=== PATIENT | female | born 1935 | race Caucasian/White ===

== ENCOUNTER 2016-08-29 17:01 | Inpatient (IN) | payer MEDICARE, OTHER ==
[~2016-08-29] VITALS: Ht 161.3 cm; Wt 77.2 kg
[2016-08-29 17:13] VITALS: BP 202/87; PULSE 69; RESP 14; O2SAT 97
[2016-08-29 17:30] VITALS: BP 207/70; PULSE 62; RESP 16; O2SAT 96
[2016-08-29 17:38] LABS: BASOPHILS % (AUTO) 0.7 % (0-3); EOSINOPHILS % (AUTO) 2.8 % (0-5); MONOCYTES % (AUTO) 6.1 % (4-12); Mean Corpuscular Hemoglobin 27.8 pg (27.0-35.0); Mean Corpuscular Volume 85.9 fL (81-100); NEUTROPHILS % (AUTO) 72.2 % (40-74); Platelet Count 336 bil/L (150-400)
[2016-08-29] MEDS ORDERED: Nitroglycerin 2% 1 Gm Ointment TOPICAL ONE (17:50)
--- NOTE | 2016-08-29 17:51 | DRSVH ---
PROCEDURE: X-RAY CHEST ONE VIEW, PORTABLE ([id number]) INDICATIONS: 80 year-old female with chest pain and syncope. TECHNIQUE: One view of the chest was acquired. COMPARISON: None. FINDINGS: Surgical changes and devices: None. Lungs and pleura: No pleural effusions or pneumothorax. Lungs are clear. Mediastinum: Mediastinal contours appear normal. Heart size is normal. Bones and chest wall: No suspicious bony lesions. Overlying soft tissues appear unremarkable. IMPRESSION: No acute cardiopulmonary disease. Dictated by: Vj Putnam M.D. on 08/29/2016 at 17:49 Approved by: Vj Putnam M.D. on 08/29/2016 at 17:50
[2016-08-29 18:00] VITALS: BP 169/76; PULSE 59; RESP 16; O2SAT 95
--- NOTE | 2016-08-29 18:12 | ED.REPORT ---
HPI-Syncope Date of Service August 29, 2016 ED Provider: Gus Balderas MD The patient is a 80 year old female not on anticoagulants with a history of hypertension and hyperlipidemia who presents to the ED via EMS accompanied by her after a syncopal episode just prior to arrival. The patient's lower back has been hurting for the past ten days and earlier this evening she was bent over the counter in an attempt to relieve it. When she straightened up, she "just kept going" per her , falling backwards and hitting her head on the refrigerator. The patient was unconscious for approximately 20 seconds. She was confused and disoriented when she woke up, but returned to her normal mental status after a couple of minutes. She does not remember straightening up or falling over. Her denies seizure-like activity. EMS found the patient with a BP of 228/102 and otherwise normal vital signs. She presents complaining of substernal pleuritic chest pain and shortness of breath onset upon waking up after the fall. The patient denies nausea, diaphoresis, palpitations, melena, hematochezia, hematemesis, headache, dysuria, or other symptoms. She has never had similar symptoms in the past. Nursing Notes Stated Complaint: GLF Chief Complaint: General Complaint Nursing Notes Reviewed: Yes Allergies: Coded Allergies: codeine (Verified Allergy, Unknown, ITCHY, 08/29/16) Scheduled PRN Aspirin (Aspirin) 325 Mg Tablet 325 MG PO Q4H PRN PRN For Pain Ibuprofen (Ibuprofen) 600 Mg Tablet 600 MG PO Q4H PRN PRN For Pain General Time Seen by Provider: 18:11 Chief Complaint Other (Syncopal Episode) Hx Obtained From: Patient, Spouse Arrived By: Ambulance Onset Occurred: Just prior to arrival Symptom Duration: Since onset Location: : Back: Chest Quality: Painful Severity: Current: Moderate Severity: Maximum: Moderate Pertinent Negative: Relieved by nothing Related History: Reports: Hypertension Immunizations: Unknown Recent Healthcare: No recent doctor visit Similar Sx Previous: No Past Medical History Past Medical History Notes: Patient is DNR/DNI. Past Medical History Reports: Hyperlipidemia, Hypertension Past Surgical History Right shoulder Reports: Hysterectomy Smoking History Unknown if Ever Smoker Social History Other Social History: Good social support, , Local resident Ambulatory Status Independent Review of Systems Constitutional: Denies: Fever Respiratory: Reports: Pleuritic pain, Shortness of breath, Denies: Non-productive cough Cardiovascular: Reports: Chest pain (Substernal), Denies: Palpitations GI: Denies: Hematemesis, Hematochezia, Melena, Nausea, Vomiting Musculoskeletal: Reports: Back pain Skin: Denies Diaphoresis Neurologic: Reports: Confusion (Resolved), Syncope, Denies: Headache, Seizure Complete sys rev & neg: except as marked. Additional Review of Systems Female: Denies: Dysuria Physical Exam Initial Vital Signs Vital Signs (First) Date Time Temp Pulse Resp B/P Pulse Ox O2 Delivery O2 Flow Rate FiO2 08/29/16 17:13 36.6 69 14 202/87 97 Room Air Initial VS: Reviewed Head / Eyes: Atraumatic, Normocephalic Skin: Warm, Dry, No cyanosis Psychiatric: Mood/affect normal, Behavior normal, Normal thought content General/Constitutional: Awake, Alert Respiratory / Chest: Breath sounds NL, Breath sounds = bilat, No respiratory distress Tender anterior chest wall Cardiovascular: Heart rate NL, Regular rhythm Heart Sounds / Murmur: Positive: Systolic murmur present.. (III/, upper left sternal border) Neurologic: Oriented X3, Speech NL Neck: Atraumatic, No midline vertebral tend Abdomen: Soft, Non-tender Back: Atraumatic, No midline vertebral tend Interpretation & Diagnostics Lab Results Interpretation Result Diagram: 08/29/16 1724 08/29/16 1724 Test 08/29/16 17:15 08/29/16 17:24 Hold Purple Top Tube Received (Received) Hold Blue Top Tube Received (Received) Hold [place] Top Tube Received (Received) White Blood Count 11.3th/mm3 (3.8-10.1) Red Blood Count 4.75mil/mm3 (3.90-5.20) Hemoglobin 13.2g/dL (12.0-15.6) Hematocrit 40.8% (35.0-46.0) Mean Corpuscular Volume 85.9fL (81-100) Mean Corpuscular Hemoglobin 27.8pg (27.0-35.0) Mean Corpuscular Hemoglobin Concent 32.4% (32.0-37.0) Red Cell Distribution Width 14.1% (12.3-15.4) Platelet Count 336bil/L (150-400) Neutrophils (%) (Auto) 72.2% (40-74) Lymphocytes (%) (Auto) 17.1% (14-46) Monocytes (%) (Auto) 6.1% (4-12) Eosinophils (%) (Auto) 2.8% (0-5) Basophils (%) (Auto) 0.7% (0-3) Sodium Level 140mEq/L (134-144) Potassium Level 3.8mEq/L (3.5-5.2) Chloride Level 100mEq/L (97-108) Carbon Dioxide Level 20mmol/L (18-29) Blood Urea Nitrogen 22mg/dL (8-27) Creatinine 1.08mg/dL (0.57-1.00) Estimat Glomerular Filtration Rate 70mL/min (>59) Glucose Level 132mg/dL (60-99) Calcium Level 10.1mg/dL (8.5-10.1) Magnesium Level 2.0mg/dL (1.6-2.6) Total Bilirubin 0.4mg/dL (0.0-1.2) Aspartate Amino Transf (AST/SGOT) 25U/L (0-50) Alanine Aminotransferase (ALT/SGPT) 15U/L (0-32) Alkaline Phosphatase 158U/L (25-165) Troponin T < 0.010ug/L (0.0-0.011) Total Protein 7.8g/dL (6.4-8.4) Albumin 3.9g/dL (3.4-5.0) ECG Interpretation ECG Interpretation: Sinus rhythm rate [address] segment changes LVH Time: 17:29 Interpreted by: ED physician X-Ray Chest Interpretation Chest Xray Interpretation: IMPRESSION: No acute cardiopulmonary disease. Dictated by: Vj Putnam M.D. on 08/29/2016 at 17:49 View: Portable, 1 view Interpretation / Wet Read by: Interpret - Radiologist X-Ray Interpretation Xray Interpretation: IMPRESSION: No acute bony injuries of the pelvic ring. Dictated by: Vj Putnam M.D. on 08/29/2016 at 19:09 Study Performed: 1 View X-Ray Ordered: Pelvis CT Head Interpretation IMPRESSION: 1. No acute intracranial hemorrhage after fall. 2. Findings suspicious for acute ischemic insults involving the right occipital lobe, as well as the anterior limb of the left internal capsule. Consider noncontrast brain MRI for further evaluation. 3. Background subcortical white matter chronic small vessel ischemic change. Dictated by: Vj Putnam M.D. on 08/29/2016 at 19:19 Study: Head CT no contrast Interpretation / Wet Read by: Interpret - Radiologist CT Chest Interpretation IMPRESSION: 1. Mildly displaced sternal body fracture, without retrosternal hematoma, pulmonary contusion, or pneumothorax. 2. Nonacute T5 and T6 vertebral body anterior wedge compression fractures, as well as lateral left eighth rib fracture. 3. Moderate retrocardiac hiatal hernia. 4. Several incidental left hepatic lobe simple cysts. Dictated by: Vj Putnam M.D. on 08/29/2016 at 19:25 Study type: Chest CT no contrast Interpretation / Wet Read by: Interpret - Radiologist Re-Eval/Medical Decision Med Decision/Clinical Course 80-year-old female with a history of hypertension and LVH who experienced a syncopal episode today. This was in the context of some severe back pain which has been ongoing for several days and was not traumatic in onset. During her syncopal episode she suffered a chest wall injury with sternal fracture. She is presently stable and in normal sinus rhythm, having some pain from her chest wall injury, she will be admitted to the hospitalist service for observation and pain control. On-call surgeon was advised of the patient's admission, does not appear to be any significant traumatic injury and sternal fracture is not expected to require intervention. Source of Hx: Old records Re-Evaluation/Progress : Time of Eval: 20:17 Patient Status: Condition improved Re-Evaluation/Progress Note: Discussed with patient CT, x-ray, and lab results, diagnosis, and plan for admit. Patient agrees with plan for care and all questions were addressed. Code status discussed with the patient in the presence of her family. Patient is DNR/DNI. Consultation #1: Referral / Consult Name: Neela Brown MD Consulted With: Surgeon Call Returned at: 20:24 Education And Training Manager: Agrees with eval, Agrees with plan Note: Discussed patient's case. Consultation #2: Referral / Consult Name: Abhilash Wolf MD Consulted With: Hospitalist Call Returned at: 20:50 Education And Training Manager: Agrees with eval, Agrees with plan, Accepts admit Counseled Regarding: Diagnosis, Lab results, Need for admission Discharge & Departure Impression: Primary Impression: Sternal fracture Encounter type: initial encounter Sternal location: body of sternum Fracture type: closed Qualified Code: S22.22XA - Fracture of body of sternum , initial encounter for closed fracture Additional Impression: Syncope Syncope type: unspecified Qualified Code: R55 - Syncope and collapse Disposition: ADMITTED TO HOSPITAL Discharge Condition All VS Reviewed: Yes Condition: Improved Referrals: Chitra Medina (PCP) Scribe Attestation Portions of this note were transcribed by Roseanna Chen. I, Dr. Balderas, personally performed the history, physical exam, and medical decision-making; I reviewed and confirmed the accuracy of the information in the transcribed note. Signed by: Isabell Kilpatrick, 08/29/2016, 21:00 copies to: Chitra Medina Donald L MD August 29, 2016 18:12 ROSEANNA CHEN August 29, 2016 18:29
[2016-08-29 18:56] LABS: TROPONIN T < 0.010 ug/L (0.0-0.011)
--- NOTE | 2016-08-29 19:11 | DRSVH ---
PROCEDURE: X-RAY PELVIS, ONE OR TWO VIEWS ([id number]) INDICATIONS: 80 year-old female with buttocks pain after ground level fall. TECHNIQUE: One view(s) of the pelvis acquired. COMPARISON: None. FINDINGS: Bones: No fractures or dislocations. No suspicious bony lesions. Soft tissues: Visualized bowel gas pattern is normal. No suspicious soft tissue calcifications. IMPRESSION: No acute bony injuries of the pelvic ring. Dictated by: Vj Putnam M.D. on 08/29/2016 at 19:09 Approved by: Vj Putnam M.D. on 08/29/2016 at 19:09
--- NOTE | 2016-08-29 19:26 | DRSVH ---
PROCEDURE: CT BRAIN WITHOUT CONTRAST ([id number]) INDICATIONS: 80-year-old female with headaches after fall. TECHNIQUE: Noncontrast 4.5 mm thick angled axial sections acquired from the foramen magnum to the vertex, with c oronal reformats. COMPARISON: None. FINDINGS: Image quality: Excellent. CSF spaces: Basal cisterns are patent. No extra-axial fluid collections. Ventricles are normal in size and shape. Brain: No midline shift. No intracranial masses or hemorrhage. On axial image 13, there is small a symmetric hypodensity involving the anterior limb of the left internal capsule. There is apparent los s of bain-white matter differentiation involving the right occipital lobe. There is patchy subcortica l white matter chronic small vessel ischemic change. There is intracranial internal carotid artery at herosclerosis. Skull and face: Calvarium and visualized facial bones are intact, without suspicious lesions. Sinuses: Visualized sinuses and mastoids are clear. IMPRESSION: 1. No acute intracranial hemorrhage after fall. 2. Findings suspicious for acute ischemic insults involving the right occipital lobe, as well as the anterior limb of the left internal capsule. Consider noncontrast brain MRI for further evaluation. 3. Background subcortical white matter chronic small vessel ischemic change. Dictated by: Vj Putnam M.D. on 08/29/2016 at 19:19 Approved by: Vj Putnam M.D. on 08/29/2016 at 19:25
--- NOTE | 2016-08-29 19:33 | DRSVH ---
PROCEDURE: CT CHEST WITHOUT CONTRAST ([id number]) INDICATIONS: 80 year-old female with chest pain after fall. TECHNIQUE: Noncontrast 5 mm thick sections acquired from the pulmonary apices to the posterior costophrenic angl es. 7 mm thick coronal and sagittal MIP reformats were then acquired. For radiation dose reduction, the following was used: automated exposure control, adjustment of mA and/or kV according to patient size. COMPARISON: [facility], CR, XR CHEST 1VW (PORTABLE), 08/29/2016, 17:33. FINDINGS: Image quality: Excellent. Lungs and pleura: No acute air space opacities. No pleural effusions or pneumothorax. Central and peripheral airways are patent and normal in caliber. Mediastinum: Heart size is normal, with coronary artery atherosclerosis. No pericardial effusion. No mediastinal adenopathy by size criteria. Thoracic aorta and central pulmonary arteries are normal in size. Esophagus is normal in caliber. There is moderate hiatal hernia. Bones and chest wall: No suspicious bony lesions. Nonacute T5 and T6 vertebral body anterior wedge c ompression fractures are present, with 40-50% height loss. Nonacute nonunited lateral left eighth rib fracture is present. Sagittal reformatted images also demonstrate mildly displaced sternal body frac ture, without retrosternal hematoma. No axillary or supraclavicular adenopathy by size criteria. Thy roid gland is normal in size. Abdomen: Several left hepatic lobe simple cysts are present, measuring up to 3.5 cm. 1.9 cm superior right renal cortical simple cyst is also present. IMPRESSION: 1. Mildly displaced sternal body fracture, without retrosternal hematoma, pulmonary contusion, or pne umothorax. 2. Nonacute T5 and T6 vertebral body anterior wedge compression fractures, as well as lateral left ei ghth rib fracture. 3. Moderate retrocardiac hiatal hernia. 4. Several incidental left hepatic lobe simple cysts. Dictated by: Vj Putnam M.D. on 08/29/2016 at 19:25 Approved by: Vj Putnam M.D. on 08/29/2016 at 19:32
[2016-08-29] MEDS ORDERED: oxyCODONE-Acetamin 5-325 mg Tablet PO ONE (20:25)
[2016-08-29] MEDS ORDERED: ASPI325T32 PO (20:29)
[2016-08-29] MEDS ORDERED: IBUP-1827 PO (20:29)
[2016-08-29] MEDS ORDERED: Ondansetron 2 mg/mL 2 mL Inj IVPUSH PRN (20:55)
[2016-08-29] MEDS ORDERED: Alum-Mag Hydrox-Simeth 30 mL Suspension PO PRN ×2 (20:55→21:00)
[2016-08-29] MEDS ORDERED: Polyethylene Glycol (PEG) 17 Gm Powder PO PRN (21:00)
[2016-08-29] MEDS ORDERED: Labetalol 5 mg/mL 4 mL Inj IVPUSH PRN (21:00)
[2016-08-29 22:07] VITALS: BP 165/59; PULSE 67; RESP 18; O2SAT 95
--- NOTE | 2016-08-29 22:39 | PCM.HPMED ---
Subjective Date of Service August 29, 2016 Primary Provider: Admitting Physician: Primary Care Physician: Chitra Medina Attending Physician: Admit Status: From the Emergency Department, Remote Telemetry Chief Complaint: Syncope History of Present Illness: Patient is a 80 year old female not on anticoagulants with a history of hypertension and hyperlipidemia who presents to the ED via EMS accompanied by her after a syncopal episode just prior to arrival. Patient had injured her low back due to heavy lifting 10 days ago and has been going to the chiropractor for this with not much improvement. Patient states she has been mostly lying in bed due to its severity. This evening when she got up from her bed she felt quite lightheaded. Patient continued to feel lightheaded even after taking some moments there, went into the kitchen and had to brace herself against the counter. Patient states she does not remember falling. Per her 's the patient was unconscious for approximately 20 seconds. She was confused and disoriented when she woke up, but returned to her normal mental status after a couple of minutes. Patient denies any tongue biting, incontinence, headaches, nausea, vision changes. Her denies seizure- like activity. EMS found the patient with a BP of 228/102 and otherwise normal vital signs. She presents complaining of substernal pleuritic chest pain and shortness of breath onset upon waking up after the fall. The patient denies nausea, diaphoresis, palpitations, melena, hematochezia, hematemesis, dysuria, or other symptoms. She has never had similar symptoms in the past. Patient characterizes her sternal pain as sharp and 9/10 on the pain scale, low back as deep and achy with pain scale of 8/10 on the pain scale. In ED vitals T 36.6, P 69, are 14, BP 202/87, oxygen saturation 97% on RA. Labs significant for WBC 11.3, creatinine 1.08, glucose 132, otherwise unremarkable. Troponin negative. ECG was no acute ischemic changes. CXR showed no acute cardiopulmonary disease, x-ray of pelvis showed no acute bony injuries of the pelvic ring. CT of head showed no signs of acute intracranial hemorrhage, findings suspicious for acute ischemic insults involving the right occipital lobe as well as the anterior limb on the left internal capsule. CT of her chest showed a mildly displaced sternal body fracture, nonacute T5 and T6 vertebral body compression fractures, and lateral left eighth rib fracture. Dr. Rangel Brown of surgery was consulted, will see the patient in a.m. Patient admitted for further treatment and management including stroke workup. Review of Systems: Constitutional: Denies: Fever Respiratory: Reports: Pleuritic pain, Shortness of breath, Denies: Non-productive cough Cardiovascular: Reports: Chest pain (Substernal), Denies: Palpitations GI: Denies: Hematemesis, Hematochezia, Melena, Nausea, Vomiting Musculoskeletal: Reports: Back pain Skin: Denies Diaphoresis Female: Denies: Dysuria Neurologic: Reports: Confusion (Resolved), Syncope, Denies: Headache, Seizure Complete sys rev & neg: except as marked. A comprehensive review of systems has been conducted with the patient and found to be negative except what is mentioned above or in the HPI. Allergies Coded Allergies: codeine (Verified Allergy, Unknown, ITCHY, 08/29/16) PMH Hyperlipidemia Hypertension Surgical History Right shoulder surgery Hysterectomy Family History Father of heart condition. Social History Hx Alcohol Use: No Hx Substance Use: No Hx Tobacco Use: No Smoking Status: Never Smoker Living Arrangement: with Family (, local resident with good support) Exam Vital Signs Vital Sign - Last Date Time Temp Pulse Resp B/P Pulse Ox O2 Delivery O2 Flow Rate FiO2 08/29/16 18:00 59 16 169/76 95 Room Air 08/29/16 17:13 36.6 Exam General: No acute distress, well-developed, well-nourished, cooperative HEENT: Normocephalic, atraumatic. External ears without defect. Pupils constricted bilaterally (s/p 6mg of morphine). Anicteric sclerae, moist conjunctivae. moist mucosa membranes. Neck: Supple with full range of motion. No JVD. No bruits. No lymphadenopathy. Cardiovascular: Regular rate and rhythm with III/ murmurs appreciated at LUSB radiating to neck, rubs, or gallops appreciated Pulmonary: CTAB no crackles, wheezes, or rhonchi. Abdomen: Bowel tones present. Soft, nontender, nondistended. No hepatosplenomegaly or masses appreciated. Extremities: No clubbing, cyanosis, edema, or lymphadenopathy appreciated. MSK: Limited ROM on right shoulder. Tenderness to motion and palpation at anterior chest wall. No midline tenderness along neck and back. Skin: Warm, dry and intact Neurological: Awak, alert and oriented x3. Cranial nerves II-XII grossly intact. Normal muscle strength, tone, and bulk. Sensory function within normal limits. No pronator drift. Normal speech. Psychiatric: Normal mood and affect. Alert and oriented to person, place, and time. Lab and Diagnostics Result Diagram: 08/29/16 1724 08/29/16 1724 X-Rays, CTs and MRIs Chest Xray Interpretation: IMPRESSION: No acute cardiopulmonary disease. Dictated by: Vj Putnam M.D. on 08/29/2016 at 17:49 View: Portable, 1 view Interpretation / Wet Read by: Interpret - Radiologist Xray Interpretation: IMPRESSION: No acute bony injuries of the pelvic ring. Dictated by: Vj Putnam M.D. on 08/29/2016 at 19:09 Study Performed: 1 View X-Ray Ordered: Pelvis CT head IMPRESSION: 1. No acute intracranial hemorrhage after fall. 2. Findings suspicious for acute ischemic insults involving the right occipital lobe, as well as the anterior limb of the left internal capsule. Consider noncontrast brain MRI for further evaluation. 3. Background subcortical white matter chronic small vessel ischemic change. Dictated by: Vj Putnam M.D. on 08/29/2016 at 19:19 Study: Head CT no contrast Interpretation / Wet Read by: Interpret - Radiologist CT Chest Interpretation IMPRESSION: 1. Mildly displaced sternal body fracture, without retrosternal hematoma, pulmonary contusion, or pneumothorax. 2. Nonacute T5 and T6 vertebral body anterior wedge compression fractures, as well as lateral left eighth rib fracture. 3. Moderate retrocardiac hiatal hernia. 4. Several incidental left hepatic lobe simple cysts. Dictated by: Vj Putnam M.D. on 08/29/2016 at 19:25 Study type: Chest CT no contrast Interpretation / Wet Read by: Interpret - Radiologist 12-lead ECG ECG Interpretation: Sinus rhythm rate [address] segment changes LVH Time: 17:29 Interpreted by: ED physician Assessment & Plan Patient is a 80 year old female with a history of hypertension and hyperlipidemia who presents to the ED via EMS accompanied by her after a syncopal episode. Patient had a GLF and hit her head with LOC for approximately 20 seconds. Patient was found to have a sternal fracture and CT head with findings suspicious for ischemic insults, patient admitted for surgery consult and stroke workup. Sternal fracture secondary to GLF, present on admission. Acute. - Confirmed on CT chest - Appreciate surgery's time and expertise, patient to be seen in a.m. Syncope, present on admission. Acute. - No seizure-like activities witnessed, highly suspicious for possible stroke based on CT head findings, and elevated blood pressures Possible stroke, present on admission. Acute. - CT showed "no acute intracranial hemorrhage, findings suspicious for acute ischemic insults involving the right occipital lobe, as well as the anterior limb of the left internal capsule." - NPO until swallow study - Swallow study pending - Echocardiogram in a.m. - Consider noncontrast brain MRI for further evaluation - PT, OT ordered Chronic conditions: Hypertension - patient states she has not taken any medication for this in several years due to side effects Hyperlipidemia - patient states she has not taken any medication for this in several years due to side effects Acetaminophen-fever/headache/mild/moderate pain Antiemetics, as needed Bowel regimen, as needed. Patient status: Patient was admitted under observation status with expected length of stay lesser than two midnights. Pain Evaluation: Adequate Pain Control GI Prophylaxis: Not indicated VTE Prophylaxis: Sub-Q Heparin (Unfractionated) Resuscitation Status: DNR/DNI:Do Not Resuscitate/Intubate Attending Statement The patient was seen and examined together with Dr. Glez on 08/29 and I agree with the history, exam and plan as outlined in the note above. Ebenezer Glez DO August 29, 2016 21:15 Abhilash Wolf MD August 30, 2016 03:37
[2016-08-29 23:50] VITALS: BP 172/72; PULSE 61; RESP 20; O2SAT 93
[2016-08-29 23:54] VITALS: BP_SYST 154; BP_SYST 159; BP_DIAS 77; BP_DIAS 91; PULSE 66; PULSE 68
[2016-08-30] VITALS (10 sets, daily range): BP systolic 157–222; BP diastolic 78–110; PULSE 47–125; RESP 18; O2SAT 94–97
[2016-08-30] MEDS: Heparin 5,000 Unit/mL Inj SUBQ SCH ×3 (00:41→20:05)
--- NOTE | 2016-08-30 01:06 | NUR ---
admit: admit questions and med rec completed in the ER. pt arrived to [facility] [place] at apprx 2300. A&OX3. c/o back/buttock pain, and sternal pain 11/15. pt medicated with prn Percocet. Ice for chest, and back, and pillow for splinting. nurse swallow screen, pt passed, puree honey thick diet ordered. will continue to monitor pt.
[2016-08-30] MEDS: oxyCODONE-Acetamin 5-325 mg Tablet PO PRN ×2 (05:54)
[2016-08-30] MEDS: Ondansetron 2 mg/mL 2 mL Inj IVPUSH PRN ×2 (05:59→10:20)
--- NOTE | 2016-08-30 08:37 | DRSVH ---
PROCEDURE: US BILATERAL DUPLEX DOPPLER IMAGING OF THE CAROTIDS ([id number]) INDICATIONS: possible stroke TECHNIQUE: Color and pulse Doppler interrogation was performed of both carotid systems, with image documentation and velocity measurements. COMPARISON: [facility], US, CAROTID DUPLEX DOPPLER BILAT, 10/08/2013, 13:46. FINDINGS: All stenosis calculations are based on NASCET criteria. Right side: Brachial blood pressure: 157/61 mm Hg. Common Carotid Artery(Distal) PSV: 102.20 cm/s Internal Carotid Artery PSV- Proximal: 61.30 cm/s Mid-lon cm/s EDV - Proximal: 13.70 cm/s Mid-lon.70 cm/s External Carotid Artery(Proximal) PSV: 125.10 cm/s ICA/CCA PSV ratio: 0.9 Richardson scale imaging description: Minimal plaque. Percent internal carotid artery stenosis: Less than 50% stenosis. Vertebral artery: Flow direction is antegrade. Left side: Brachial blood pressure: Not obtained. Common Carotid Artery(Distal) PSV: 64.30 cm/s Internal Carotid Artery PSV - Proximal: 90.40 cm/s Mid-lon cm/s Distal: 92.90 cm/s EDV - Proximal: 15.90 cm/s Mid-lon.50 cm/s Distal: 22.30 cm/s External Carotid Artery(Proximal) PSV: 145.60 cm/s ICA/CCA PSV ratio: 2.1 Richardson scale imaging description: Minimal plaque. Percent internal carotid artery stenosis: 50-69% stenosis Vertebral artery: Flow direction is antegrade. IMPRESSION: 50-69% left internal carotid artery stenosis and less than 50% right internal carotid art lamine stenosis. Dictated by: Eduin Jara [facility] Interpreted: Tiffanie Chirinos MD on 08/30/2016 at 8:35 Transcribed by: JENSEN on 08/30/2016 at 8:37 Approved by: Tiffanie Chirinos MD, PhD on 08/30/2016 at 9:39
--- NOTE | 2016-08-30 09:45 | NUR ---
Hypertension B/P - 198/90, HR 62. Permissive HTN parameters reviewed with Dr Song. Marshall to give Labetalol when SBP greater than 220, DBP greater than 120. Will continue to monitor, frequent rounding in place. Addendum: 08/30/16 at 1430 by PADMA ANTON RN B/P prior to leaving for MRI = 215/109 HR 125 - MRI placed on hold for HR. 10 mg of IV Labetalol obtained. HR rechecked prior to administration HR in the 60s. Labetalol held. Will continue to monitor,
--- NOTE | 2016-08-30 10:30 | NUR ---
Vomiting Pt vomiting x 3, ice pack placed to back of neck, HOB elevated, 4 mg IV Zofran given. Pt reports nausea has decreased. Call light in reach, will continue to monitor.
--- NOTE | 2016-08-30 10:56 | NUR ---
Case Management: PAUL delivered and explained. Original placed in chart and copy left at bedside. Rea Oliva RN
[2016-08-30] MEDS: Polyethylene Glycol (PEG) 17 Gm Powder PO SCH ×2 (11:00→20:04)
--- NOTE | 2016-08-30 11:28 | NUR ---
Evaluation completed. Please go to "Notes" then click on "Assessments and Notes" (bottom left corner of screen). Then select appropriate discipline tab on top of screen.
--- NOTE | 2016-08-30 13:00 | NUR ---
Anxiety/pain Pt c/o anxiety related to upcoming MRI, sternal pain and nausea continue. notified, new order received. PO Ativan and Ultram given, will continue to monitor. Addendum: 08/30/16 at 1451 by PADMA ANTON RN Pt resting quietly, appears to be sleeping, reports sternal pain is decreasing. Echo in process, will continue to monitor.
--- NOTE | 2016-08-30 13:14 | PCM.PNMED ---
Subjective Date of Service August 30, 2016 Subjective pt had mild frontal ALBERT, 2/10, mildly nauseated, no vomiting BP noted to be 190s, denied blurry vision, photophobia, focal weakness on limbs no BM for 5days, Exam Vital Signs Vital Sign - Last Date Time Temp Pulse Resp B/P Pulse Ox O2 Delivery O2 Flow Rate FiO2 08/30/16 09:24 36.7 63 18 188/90 94 Nasal Cannula 2.00 Intake and Output 08/29/16 08/29/16 08/30/16 Cumulative From/Thru 15:00 23:00 07:00 08/29/16 23:50 - 08/30/16 06:14 Intake Total 100 ml 100 ml Output Total 0 ml 0 ml Balance 100 ml 100 ml Intake Oral 100 ml 100 ml Output Urine Total 0 ml 0 ml Exam NAD, comfortably laying down on the bed no JVD, MMM, no LAD RRR, nl s1, s2 no mrg CTAB, no w,c S,ND,NT,normoactive BS+ warm, no edema, pulses 2/2 CN2-12 grossly intact, AAOx3, motor strength 5/5 Lab and Diagnostics Result Diagram: 08/29/16 1724 08/29/16 1724 X-Rays, CTs and MRIs Chest Xray Interpretation: IMPRESSION: No acute cardiopulmonary disease. Dictated by: Vj Putnam M.D. on 08/29/2016 at 17:49 View: Portable, 1 view Interpretation / Wet Read by: Interpret - Radiologist Xray Interpretation: IMPRESSION: No acute bony injuries of the pelvic ring. Dictated by: Vj Putnam M.D. on 08/29/2016 at 19:09 Study Performed: 1 View X-Ray Ordered: Pelvis CT head IMPRESSION: 1. No acute intracranial hemorrhage after fall. 2. Findings suspicious for acute ischemic insults involving the right occipital lobe, as well as the anterior limb of the left internal capsule. Consider noncontrast brain MRI for further evaluation. 3. Background subcortical white matter chronic small vessel ischemic change. Dictated by: Vj Putnam M.D. on 08/29/2016 at 19:19 Study: Head CT no contrast Interpretation / Wet Read by: Interpret - Radiologist CT Chest Interpretation IMPRESSION: 1. Mildly displaced sternal body fracture, without retrosternal hematoma, pulmonary contusion, or pneumothorax. 2. Nonacute T5 and T6 vertebral body anterior wedge compression fractures, as well as lateral left eighth rib fracture. 3. Moderate retrocardiac hiatal hernia. 4. Several incidental left hepatic lobe simple cysts. Dictated by: Vj Putnam M.D. on 08/29/2016 at 19:25 Study type: Chest CT no contrast Interpretation / Wet Read by: Interpret - Radiologist 12-lead ECG ECG Interpretation: Sinus rhythm rate [address] segment changes LVH Time: 17:29 Interpreted by: ED physician Assessment & Plan Patient is a 80 year old female with a history of hypertension and hyperlipidemia who presents to the ED via EMS accompanied by her after a syncopal episode. Patient had a GLF and hit her head with LOC for approximately 20 seconds. Patient was found to have a sternal fracture and CT head with findings suspicious for ischemic insults, patient admitted for surgery consult and stroke workup. acute, active Possible stroke, present on admission. CT showed "no acute intracranial hemorrhage, findings suspicious for acute ischemic insults involving the right occipital lobe, as well as the anterior limb of the left internal capsule." - NPO until swallow study - Swallow study pending - Echocardiogram - awaits MR stroke protocol, - PT, OT ordered, will try tomorrow given limited mobility due to pain from multiple fx -[id number] today, 162mg daily tomorrow Sternal fracture secondary to GLF, present on admission. Acute. Confirmed on CT chest - Appreciate surgery's time and expertise, likely non-surgical management. Syncope, present on admission. ddx: cardiac, CVA, No seizure-like activities witnessed -frequent neurochecks q2h HTN, uncontrolled, allows permissive HTN for now, labetalol if SBP>220 or DBP> 120 ALBERT, nausea, POA, likely in the setting acute stroke, HTN or ileus -will control supportively for now, -zofran for n/v, tylenol for ALBERT ileus, no BM>5days, start aggressive bowel regimen Chronic conditions: Hyperlipidemia - patient states she has not taken any medication for this in several years due to side effects, will get a1c, lipid panel for risk stratification Patient status: likely 1-2more days, DNR/DNI diet: per s/s eval dvt ppx: HSQ q12h GI Prophylaxis: Not indicated VTE Prophylaxis: Sub-Q Heparin (Unfractionated) Resuscitation Status: DNR/DNI:Do Not Resuscitate/Intubate Time spent 65min Ai Hayes MD August 30, 2016 11:01
[2016-08-30] MEDS: LORazepam 1 mg Tablet PO PRN (13:30)
--- NOTE | 2016-08-30 15:01 | CONS ---
[address] [address] CONSULTATION REPORT PATIENT: CHAPO CASTILLO : 1935 MR#: [id number] ADMIT: 08/29/2016 JOB ID: [id number] DATE OF SERVICE: 08/30/2016 CHIEF COMPLAINT: This is a 80-year-old woman with a sternal fracture; this consultation is requested by Dr. Gus Balderas of the Emergency Department. HISTORY OF PRESENT ILLNESS: This is a 80-year-old woman who presented to the emergency department last night with a syncopal episode. She described a history of back pain for the previous 10 days, and she had been bent over the counter in an attempt to relieve it. Her described that she fell backward. She arrived to the hospital with hypertension and otherwise normal vital signs. She was complaining of substernal chest pain. Comprehensive imaging was performed, including chest and pelvis radiographs, chest CT, and brain CT. The chest CT showed a sternal fracture, old rib fractures, and old thoracic spinal fractures. There was no other sign of trauma. She was admitted overnight for observation and to work up the potential cause for her syncopal episode. A Surgery consult was requested due to the history of blunt trauma. PAST MEDICAL HISTORY: Hyperlipidemia, hypertension. PAST SURGICAL HISTORY: Right shoulder surgery, hysterectomy. MEDICATIONS: Reviewed and include: 1. Aspirin. 2. Ibuprofen. ALLERGIES: CODEINE. FAMILY HISTORY: Reviewed and noncontributory. SOCIAL HISTORY: She is , a local resident, and denies alcohol and tobacco use. She has never been a smoker. REVIEW OF SYSTEMS: Eleven point review of systems is positive for back pain, chest pain at the location of her sternum, shortness of breath yesterday, syncope, and is otherwise negative. PHYSICAL EXAMINATION: Temperature 36.7, heart rate 63, blood pressure 188/90, respiratory rate of 18, saturation 94% on room air. General: Awake, alert, no acute distress. Head: Normocephalic. Neck: Supple. Cardiac: Regular rate and rhythm, no murmurs, rubs, or gallops. Respiratory: Clear to auscultation bilaterally. There is soft tissue fullness and swelling just to the right of the manubrium on the upper chest wall. She is holding an ice pack over it for comfort. She is not short of breath at this time. Abdomen: Soft, nontender. Well-healed incision from previous hysterectomy. Extremities: No gross abnormalities. Neurologic: No gross deficits. Psychiatric: Normal cognition and judgment. LABORATORY DATA: Labs on admission revealed white blood cell count of 11, hematocrit of 40, platelets of 336. Comprehensive metabolic panel is within normal limits with the exception of creatinine 1.08. IMAGING: CT images of the chest are personally reviewed and reveal a mildly displaced sternal body fracture without retrosternal hematoma. She has nonacute T5 and T6 vertebral body fractures and an old left 8th rib fracture. There are small cysts within the left side of her liver, and a hiatal hernia is present. ASSESSMENT: A 80-year-old woman with a sternal fracture, otherwise stable from a traumatic standpoint. RECOMMENDATIONS: Continue current workup regarding her syncopal event. With regards to sternal fracture, I recommend adequate pain control. The patient should be encouraged to ambulate and resume normal activities when she feels able. I recommended physical therapy consultation while she is in the hospital to assist with ambulation, as well as to assist with appropriate disposition.
--- NOTE | 2016-08-30 15:30 | NUR ---
Hypertension B/P = 222/110, HR of 62, 10 IV Labetalol given. Frequent rounding in place, will continue to monitor. Addendum: 08/30/16 at 1639 by PADMA ANTON RN B/P recheck = 160/82 HR of 78. Decreased nausea and pain. Pt awaiting transportation to CT and MRI. Will continue to monitor.
--- NOTE | 2016-08-30 15:44 | DRSVH ---
[facility] [address] [place] [place] [address] Echocardiogram Report Name: CHAPO CASTILLO Date: 08/30/2016 Height: 63.5 in Hospital Exam Location: [facility] Weight: 171 lb Gender: Female BSA: 1.8 m2 : 1935 Age: 80 yrs BP: 122/110 mmHg Reason For Study: STROKE, POSSIBLE Ordering Physician: HOSPITALIST [facility] Performed By: Dakota Garibay Referring Physician: COLLINS BURGESS Interpretation Summary Left ventricular wall thickness is at the upper limits of normal. The ejection fraction is estimated to be 65-70%. There is moderate aortic valve sclerosis. The right ventricular systolic pressure is estimated at 47 mmHg assuming a right atrial pressure of 3 mm Hg. There is mild tricuspid regurgitation. Compared to the prior echo exam, there has been no change in the severity of pulmonary hypertension. Procedure: A two-dimensional transthoracic echocardiogram with color flow and Doppler was performed. The study quality was technically adequate. Comparison is made with the echocardiogram of 06/22/13. The patient was in normal sinus rhythm during the exam. Left Ventricle: The left ventricle is normal in size. Left ventricular wall thickness is at the upper limits of normal. The LVOT velocity is 1.8 m/s. The ejection fraction is estimated to be 65-70%. Left ventricular wall motion is normal. Assessment of diastolic parameters indicates a relaxation abnormality of the left ventricle, consistent with normal filling pressures. Right Ventricle: The right ventricle grossly appears normal in size with probable normal systolic function. Atria: The left atrium is borderline dilated. Right atrial size is normal. The interatrial septum is intact with no evidence for an atrial septal defect. Mitral Valve: The mitral valve leaflets are slightly calcified. The mitral valve chordae are thickened and/or calcified. There is trace mitral regurgitation. Aortic Valve: The aortic valve is trileaflet. The aortic valve opens well. The aortic valve is slightly calcified. There is moderate aortic valve sclerosis. There is trace aortic regurgitation. Tricuspid Valve: The tricuspid valve is normal. There is mild tricuspid regurgitation. The right ventricular systolic pressure is estimated at 47 mmHg assuming a right atrial pressure of 3 mm Hg. Compared to the prior echo exam, there has been no change in the severity of pulmonary hypertension. Pulmonic Valve: The pulmonic valve is not well seen, but is grossly normal. There is a trace or physiologic amount of pulmonic regurgitation. Great Vessels: The aortic root is normal size. The dimensions of the ascending aorta are normal. The pulmonary artery is normal size. The IVC is of normal diameter and collapses greater than 50% with a sniff. This suggests a low right atrial pressure of 3 mm Hg. MMode/2D Measurements & Calculations LVIDd: 4.2 cm RA long axis: 4.1 cm LVOT diam: 1.7 cm LVIDs: 2.3 cmLA A2 area: 17.3 cm AoV Openin.5 cm FS: 44.5 % LA A4 area: 21.7 cm RA area: 11.0 cm Ao root diam EPSS: 0.49 cmLA length (vol) RA vol: 25.0 ml IVSd: 0.93 cm RA : 13.7 ml/m2 asc Aorta Diam LVPWd LA vol: 57.9 ml : 0.9cm LA vol index Ao Arch Diam (Prox Trans): 2.8 cm : 31.8 ml/m2 EDV(MOD-sp2) LV pop. diameter/BSA LV sys. diameter/BSA (cm/m^2): 2.3 (cm/m^2): 1.3 ESV(MOD-sp2) EF(MOD-sp2) Doppler Measurements & Calculations Ao V2 max MV E max devin MV E/A: 0.77 TR max devin : 239.5 cm/sec : 72.5 cm/sec Med Peak E' Devin : 330.4 cm/sec Ao max P.9 mmHg MV A max devin TR max PG Ao mean P.3 mmHg : 94.5 cm/sec E/E' med: 18.6 : 43.7 mmHg LVOT Max Devin Lat Peak E' Devin PA V2 max : 175.7 cm/sec : 184.1 cm/sec E/E' lat: 20.9 PA mean PG BENJY(I,D): 1.9 cm E/e' average : 5.4 mmHg sev ratio: 0.90 MV dec time: 0.33 sec Ao V2 mean LV V1 max PG PA V2 mean : 168.5 cm/sec : 109.3 cm/sec Ao V2 VTI: 48.1 cmLV V1 VTI: 43.5 cm BENJY(V,D): 1.6 cm2 BENJY indexed to BSA (cm^2/m^2): 1.1 Electronically signed by: Arthur Ruvalcaba on Reading Physician:08/30/2016 03:43 PM
--- NOTE | 2016-08-30 15:44 | NUR ---
OT evaluation attempted. BP too high for out of bed assessment. Talked with patient about home situation. No charge. OT will not be available until Saturday. Physical therapy will attempt tomorrow. Dennis Villalba OTR/L
--- NOTE | 2016-08-30 18:13 | NUR ---
Off the unit Pt is off the unit for completion of MRI, no complains of increased pain, nausea or vomiting,
--- NOTE | 2016-08-30 19:35 | DRSVH ---
PROCEDURE: MRI STROKE PROTOCOL ([id number]) Pre- and post-contrast brain MRI, non-contrast brain MR angiogram, pre- and postcontrast neck MR regina ogram INDICATIONS: syncope stroke in ct TECHNIQUE: Brain: Noncontrast axial T1 spin echo, axial T2 fast spin echo, sagittal and axial FLAIR, coronal T2 fast spin echo, axial gradient echo, axial diffusion and ADC through the brain. After the administr ation of contrast, axial 3D VIBE of the cranial vasculature and brain. Brain MRA: Non-contrast 3-D time of flight MR angiogram, with multiple xacsvhd-myhhygqyl-ojovriojas (MIP) reformats performed. Neck MRA: Axial and sagittal TruFISP through the neck. Coronal dynamic MR angiogram during administ ration of contrast in the arterial and venous phases, with 3-dimenstional ecteavt-xqeswfjoy-dppnicqnz n (MIP) reformats constructed from subtraction images. COMPARISON: None. FINDINGS: Image quality: Excellent. BRAIN: CSF spaces: Ventricles are normal in size and shape. Basal cisterns are patent. No extra-axial flu id collections. Brain: No intracranial bleeds or mass effects. There are diffuse scattered bilateral white matter s ignal changes. Richardson-white matter interface is normal. Diffusion weighted images show no acute ischem ic insults. Brainstem appears normal. Prominent diffuse smooth dural enhancement of unknown etiology or significance. Normal intravascular flow voids are present. No abnormal intracranial enhancement. Skull and face: Calvarial marrow signal is normal. Orbits appear normal. Sinuses: Sinuses and mastoids are clear. BRAIN MR ANGIOGRAM: Anterior circulation: Intracranial internal carotid arteries are normal in size and enhancement. 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 The flow within t he paired anterior cerebral arteries is normal and symmetric. The flow within the middle cerebral ar teries is normal and symmetric. The anterior communicating artery is seen. No stenoses, occlusions, or aneurysms. Posterior circulation: The visualized portions of the vertebral arteries demonstrate normal caliber, and join to form a normal appearing basilar artery. There is a tortuous right P2 segment, however th e posterior cerebral arteries appear patent on the source images.. No stenoses, occlusions, or aneur ysms. NECK MR ANGIOGRAM: Carotids: Great vessels demonstrate a conventional anatomy as they arise from the aortic arch. The origins of the common carotid arteries appear patent. The calibers and courses of both common caroti d arteries are normal. There is approximately 50% focal stenosis of proximal right ICA. Though left I CA focal stenosis. Posterior circulation: The origins of the vertebral arteries are not well-visualized. More superior portions of both vertebral arteries demonstrate normal course and caliber, and join to form a normal appearing basilar artery. Miscellaneous: Subclavian arteries appear patent. Pre-contrast images through the neck show no soft tissue abnormalities. IMPRESSION: BRAIN MRI: No evidence of acute ischemia. Diffuse bilateral white matter signal changes, statistically chronic microvascular ischemic disease a lthough technically nonspecific. BRAIN MR ANGIOGRAM: Atretic right A1 segment. No focal stenosis or occlusion NECK MR ANGIOGRAM: 50% focal stenosis involving the right ICA. No left ICA stenosis. The estimate of stenosis included in the report of the imaging study was calculated using the NASCET method Dictated by: Galo Casas M.D. on 08/30/2016 at 19:24 Approved by: Galo Casas M.D. on 08/30/2016 at 19:34
[2016-08-30] MEDS ORDERED: Labetalol 5 mg/mL 20 mL Inj IV PRN (22:10)
[2016-08-31] VITALS (11 sets, daily range): BP systolic 116–189; BP diastolic 65–93; PULSE 49–70; RESP 18–20; O2SAT 96–99
[2016-08-31] MEDS ORDERED: Labetalol 5 mg/mL 20 mL Inj IV PRN (00:30)
--- NOTE | 2016-08-31 06:06 | NUR ---
Pain/Orthostatic VS pt C/O sternal and back pain on rate of 6-8/10. Administered PRN PO Tramadol and ice pack. pt report rain relief on rate of 3-4/10 which is tolerable for her. orthostatic vitals done this AM. ( lying 133/75 , HR 55; Sitting 129/80, HR 58; and standing 116/78, HR 70.) Pt denies dizziness/lightheadedness, except sternal pain during moving. O2 sat 96-97% on 2L via NC. will continue to monitor.
[2016-08-31 06:17] LABS: BASOPHILS % (AUTO) 0.4 % (0-3); MONOCYTES % (AUTO) 9.3 % (4-12); Mean Corpuscular Hemoglobin 28.1 pg (27.0-35.0); Mean Corpuscular Volume 84.2 fL (81-100); NEUTROPHILS % (AUTO) 70.2 % (40-74); Platelet Count 250 bil/L (150-400)
[2016-08-31 06:27] LABS: Phosphorus 4.1 mg/dL (2.5-4.9)
--- NOTE | 2016-08-31 07:32 | PCM.PNSURG ---
Subjective Date of Service: August 31, 2016 Date of Service: August 31, 2016 Visit Information: Reason for Visit Sternal Fracture, Syncope Surgery/Surgery Date Post-Op Day # Date of Admission: August 29, 2016 at 21:59 Hospital Day # 3 Subjective: Patient reports better control of sternal and low back pain with the tramadol and ice. Concerns elicited about pain increasing if med dosing is missed. Chest pain with breathing mentioned. Postop General: No Shortness of Breath Gastrointestinal: No N/V Pain Management: PO (tramadol) Objective Vital Sign- Last 8 Hours Date Time Temp Pulse Resp B/P Pulse Ox O2 Delivery O2 Flow Rate FiO2 08/31/16 06:00 49 08/31/16 05:44 70 18 116/78 97 Nasal Cannula 2.00 08/31/16 05:41 58 18 129/80 96 Nasal Cannula 2.00 08/31/16 05:40 36.4 55 18 133/75 97 Nasal Cannula 2.00 08/31/16 01:14 36.4 58 18 154/65 96 Nasal Cannula 2.00 08/31/16 00:40 Supplement Oxygen Intake and Output- Last 8 Hour 08/31/16 Cumulative From/Thru 07:00 08/29/16 23:50 - 08/31/16 06:31 Intake Total 300 ml 1000 ml Output Total 350 ml 650 ml Balance -50 ml 350 ml Intake Oral 300 ml 1000 ml Output Urine Total 350 ml 450 ml Emesis 200 ml General: Alert, Oriented X3, Cooperative, Mild Distress Lungs: Clear to Auscultation, Diminished Heart: Regular Rate/Rhythm Abdomen: Soft Result Diagram: 08/31/16 0719 08/31/16 0500 Assessment & Plan Impression sternal fracture Problems: Plan -Will add lidoderm patch to most painful area of sternum 12h/day -Tramadol to continue along with ice pack -educate patient re: breathing with stomach moving vs chest -PT -no surgical indication at this time; pain control and PT -surgery to sign off; contact us with any questions. Pain Management: Lidoderm patch to sternum 12h/day. tramadol q4h VTE Prophylaxis: Sub-Q Heparin (Unfractionated) Resuscitation Status: DNR/DNI:Do Not Resuscitate/Intubate Sriinvasan Medina PA-C August 31, 2016 07:32
[2016-08-31] MEDS: Polyethylene Glycol (PEG) 17 Gm Powder PO SCH ×2 (08:30→22:00)
[2016-08-31] MEDS: Lidocaine Topical 5% Patch TOPICAL SCH (09:09)
--- NOTE | 2016-08-31 09:15 | NUR ---
Constipation Pt declines off of bowel medications as ordered by MD. This RN educated pt regarding importance of avoiding constipation while in the hospital. Pt continues to decline offer of medication. Prune juice given, pt encouraged to increased fluid intake, water in particular. Will continue to monitor
[2016-08-31] MEDS: Heparin 5,000 Unit/mL Inj SUBQ SCH ×2 (09:22→21:58)
--- NOTE | 2016-08-31 09:28 | PCM.PNMED ---
Subjective Date of Service August 31, 2016 Subjective pt c/o pain on sternum, partially controlled with [id number], denied sob, focal weakness, MR stroke protocol unremarkable. PT to see patient today, also recommended by surgery Exam Vital Signs Vital Sign - Last Date Time Temp Pulse Resp B/P Pulse Ox O2 Delivery O2 Flow Rate FiO2 08/31/16 06:00 49 08/31/16 05:44 18 116/78 97 Nasal Cannula 2.00 08/31/16 05:40 36.4 Intake and Output 08/30/16 08/30/16 08/31/16 Cumulative From/Thru 15:00 23:00 07:00 08/29/16 23:50 - 08/31/16 06:31 Intake Total 600 ml 300 ml 1000 ml Output Total 300 ml 350 ml 650 ml Balance 300 ml -50 ml 350 ml Intake Oral 600 ml 300 ml 1000 ml Output Urine Total 100 ml 350 ml 450 ml Emesis 200 ml 200 ml Exam NAD, comfortably laying down on the bed no JVD, MMM, no LAD RRR, nl s1, s2 no mrg CTAB, no w,c, tenderness on sternum S,ND,NT,normoactive BS+ warm, no edema, pulses 2/2 CN2-12 grossly intact, AAOx3, motor strength 5/5 IVs and Medications Medications Reviewed: Medications were reviewed in detail Lab and Diagnostics Result Diagram: 08/31/16 0719 08/31/16 0500 X-Rays, CTs and MRIs Chest Xray Interpretation: IMPRESSION: No acute cardiopulmonary disease. Dictated by: Vj Putnam M.D. on 08/29/2016 at 17:49 View: Portable, 1 view Interpretation / Wet Read by: Interpret - Radiologist Xray Interpretation: IMPRESSION: No acute bony injuries of the pelvic ring. Dictated by: Vj Putnam M.D. on 08/29/2016 at 19:09 Study Performed: 1 View X-Ray Ordered: Pelvis CT head IMPRESSION: 1. No acute intracranial hemorrhage after fall. 2. Findings suspicious for acute ischemic insults involving the right occipital lobe, as well as the anterior limb of the left internal capsule. Consider noncontrast brain MRI for further evaluation. 3. Background subcortical white matter chronic small vessel ischemic change. Dictated by: Vj Putnam M.D. on 08/29/2016 at 19:19 Study: Head CT no contrast Interpretation / Wet Read by: Interpret - Radiologist CT Chest Interpretation IMPRESSION: 1. Mildly displaced sternal body fracture, without retrosternal hematoma, pulmonary contusion, or pneumothorax. 2. Nonacute T5 and T6 vertebral body anterior wedge compression fractures, as well as lateral left eighth rib fracture. 3. Moderate retrocardiac hiatal hernia. 4. Several incidental left hepatic lobe simple cysts. Dictated by: Vj Putnam M.D. on 08/29/2016 at 19:25 Study type: Chest CT no contrast Interpretation / Wet Read by: Interpret - Radiologist 12-lead ECG ECG Interpretation: Sinus rhythm rate [address] segment changes LVH Time: 17:29 Interpreted by: ED physician Assessment & Plan Patient is a 80 year old female with a history of hypertension and hyperlipidemia who presents to the ED via EMS accompanied by her after a syncopal episode. Patient had a GLF and hit her head with LOC for approximately 20 seconds. Patient was found to have a sternal fracture and CT head with findings suspicious for ischemic insults, patient admitted for surgery consult and stroke workup. acute, active Syncope, present on admission. ddx: cardiac vs orthostatic, -frequent neurochecks q2h - advance diet to general today -awaits Echocardiogram - PT, OT today, -s/p [id number], aspirin 81mg daily for primary prevention started. -continue telemetry Sternal fracture, nonacute t5-t6 fx, secondary to GLF, present on admission. Acute. Confirmed on CT chest - Appreciate surgery's time and expertise, likely non-surgical management. -pain control with tramadol 100mg tid, tylenol tid today ALBERT, nausea, POA, likely in the setting ileus, HTN -will control supportively for now, -zofran for n/v, tylenol for ALBERT ileus, no BM>5days, continue aggressive bowel regimen Chronic conditions, resolved, stable Initially there was concern for Possible stroke as CT showed "no acute intracranial hemorrhage, findings suspicious for acute ischemic insults involving the right occipital lobe, as well as the anterior limb of the left internal capsule." However, MR stroke protocol was unremarkable. pt remained non -focal on exam. HTN, uncontrolled, pt was noted to have uncontrolled BP on admission, initially allowed permissive HTN given concern for stroke, however, given severe pain, it was thought to be response from pain, normalized as pain was better controlled, keep labetalol prn if SBP>180s, Hyperlipidemia - patient states she has not taken any medication for this in several years due to side effects, will get a1c, lipid panel for risk stratification Patient status: likely 1-2more days, DNR/DNI diet: per s/s eval dvt ppx: HSQ q12h GI Prophylaxis: Not indicated VTE Prophylaxis: Sub-Q Heparin (Unfractionated) Resuscitation Status: DNR/DNI:Do Not Resuscitate/Intubate Time spent 35min Ai Hayes MD August 31, 2016 09:15
--- NOTE | 2016-08-31 13:02 | NUR ---
Evaluation completed. Please go to "Notes" then click on "Assessments and Notes" (bottom left corner of screen). Then select appropriate discipline tab on top of screen.
--- NOTE | 2016-08-31 15:56 | NUR ---
Social Work: Initial Assessment Data: Pt is a 80 y/o female admitted for sternal fracture, syncope. Pt's PCP is Dr Medina, pt's insurance is Medicare with [employer] supp. EMR reviewed. Readmit score is 0, low. SENIOR MORTGAGE LOAN PROCESSOR met with pt at bedside, role explained. Pt states that she lives in [place] with her spouse with 2 stairs to enter. Pt reports she does not drive, has no hx of HH or SNF, no LTC or VA benefits, and is not a caregiver. Pt states that she has not been up at all durring hospitalization. PT worked with pt, recommending SNF at this time. Pt is very hesitant about SNF or HH. SENIOR MORTGAGE LOAN PROCESSOR will discuss with MD regarding further order. SENIOR MORTGAGE LOAN PROCESSOR will continue to follow and will meet with pt on 09/01. SNF/HH choice list given. Assessment: Pt who is independent at baseline. Plan: Pt is very hesitant about SNF or HH. SENIOR MORTGAGE LOAN PROCESSOR will discuss with MD regarding further order. SENIOR MORTGAGE LOAN PROCESSOR will continue to follow and will meet with pt on 09/01. SNF/HH choice list given. BRENDON Moreira Addendum: 08/31/16 at 1600 by RAZA CALLAWAY Amended: Links added.
[2016-08-31] MEDS: oxyCODONE-Acetamin 5-325 mg Tablet PO PRN (21:58)
[2016-09-01] VITALS (8 sets, daily range): BP systolic 142–197; BP diastolic 73–92; PULSE 53–68; RESP 18–22; O2SAT 93–97
--- NOTE | 2016-09-01 07:49 | NUR ---
Pain Pt c/o sternal pain 10/15 as well as leg pain in the beginning of the shift, Percocet as well as scheduled Tylenol given, pain controlled well, pt sleep through the night without complaining pain and need pain med.
[2016-09-01] MEDS: Lidocaine Topical 5% Patch TOPICAL SCH (08:23)
[2016-09-01] MEDS: Heparin 5,000 Unit/mL Inj SUBQ SCH ×2 (08:30→21:51)
[2016-09-01] MEDS: Polyethylene Glycol (PEG) 17 Gm Powder PO SCH ×2 (08:30→20:30)
[2016-09-01] MEDS: oxyCODONE-Acetamin 5-325 mg Tablet PO PRN ×4 (10:01→21:43)
--- NOTE | 2016-09-01 11:27 | PCM.PNMED ---
Subjective Date of Service September 01, 2016 Subjective She is seen today in her room to follow-up the sternal fracture, weakness, hyperlipidemia. Her cholesterol is 205 and her LDL is 132. The CBC and CMP are normal. She is now looking [place] a [place] [facility] facility for discharge as her is in no shape to be able to take care of her at home. Exam Vital Signs Vital Sign - Last Date Time Temp Pulse Resp B/P Pulse Ox O2 Delivery O2 Flow Rate FiO2 09/01/16 09:14 36.7 53 20 158/92 97 Nasal Cannula 1.50 Intake and Output 08/31/16 08/31/16 09/01/16 Cumulative From/Thru 15:00 23:00 07:00 08/29/16 23:50 - 09/01/16 05:45 Intake Total 900 ml 200 ml 2100 ml Output Total 500 ml 1200 ml 2350 ml Balance 400 ml -1000 ml -250 ml Intake Oral 900 ml 200 ml 2100 ml Output Urine Total 500 ml 1200 ml 2150 ml Emesis 200 ml # Bowel Movements 0 0 0 Exam Heart is regular rate and rhythm without murmur, lungs are clear to auscultation bilaterally, extremities have no ankle edema. There is a prominent swelling and tenderness at the junction between the sternum and manubrium on the upper chest. IVs and Medications Medications Reviewed: Medications were reviewed in detail Lab and Diagnostics Result Diagram: 08/31/16 0719 08/31/16 0500 X-Rays, CTs and MRIs Chest Xray Interpretation: IMPRESSION: No acute cardiopulmonary disease. Dictated by: Vj Putnam M.D. on 08/29/2016 at 17:49 View: Portable, 1 view Interpretation / Wet Read by: Interpret - Radiologist Xray Interpretation: IMPRESSION: No acute bony injuries of the pelvic ring. Dictated by: Vj Putnam M.D. on 08/29/2016 at 19:09 Study Performed: 1 View X-Ray Ordered: Pelvis CT head IMPRESSION: 1. No acute intracranial hemorrhage after fall. 2. Findings suspicious for acute ischemic insults involving the right occipital lobe, as well as the anterior limb of the left internal capsule. Consider noncontrast brain MRI for further evaluation. 3. Background subcortical white matter chronic small vessel ischemic change. Dictated by: Vj Putnam M.D. on 08/29/2016 at 19:19 Study: Head CT no contrast Interpretation / Wet Read by: Interpret - Radiologist CT Chest Interpretation IMPRESSION: 1. Mildly displaced sternal body fracture, without retrosternal hematoma, pulmonary contusion, or pneumothorax. 2. Nonacute T5 and T6 vertebral body anterior wedge compression fractures, as well as lateral left eighth rib fracture. 3. Moderate retrocardiac hiatal hernia. 4. Several incidental left hepatic lobe simple cysts. Dictated by: Vj Putnam M.D. on 08/29/2016 at 19:25 Study type: Chest CT no contrast Interpretation / Wet Read by: Interpret - Radiologist 12-lead ECG ECG Interpretation: Sinus rhythm rate [address] segment changes LVH Time: 17:29 Interpreted by: ED physician Assessment & Plan Patient is a 80 year old female with a history of hypertension and hyperlipidemia who presents to the ED via EMS accompanied by her after a syncopal episode. Patient had a GLF and hit her head with LOC for approximately 20 seconds. Patient was found to have a sternal fracture and CT head with findings suspicious for ischemic insults, patient admitted for surgery consult and stroke workup. acute, active Syncope, present on admission. ddx: cardiac vs orthostatic, -frequent neurochecks have not shown any signs of stroke. -Tolerating general diet -Echo report reviewed - PT, OT continue today -s/p [id number], aspirin 81mg daily for primary prevention started. -continue telemetry Sternal fracture, nonacute t5-t6 fx, secondary to GLF, present on admission. Acute. Confirmed on CT chest - Appreciate surgery's time and expertise, likely non-surgical management. -pain control with tramadol 100mg tid, tylenol tid today ALBERT, nausea, POA, likely in the setting ileus, HTN -will control supportively for now, -zofran for n/v, tylenol for ALBERT ileus, no BM>5days, continue aggressive bowel regimen Chronic conditions, resolved, stable Initially there was concern for Possible stroke as CT showed "no acute intracranial hemorrhage, findings suspicious for acute ischemic insults involving the right occipital lobe, as well as the anterior limb of the left internal capsule." However, MR stroke protocol was unremarkable. pt remained non -focal on exam. HTN, uncontrolled, pt was noted to have uncontrolled BP on admission, initially allowed permissive HTN given concern for stroke, however, given severe pain, it was thought to be response from pain, normalized as pain was better controlled, keep labetalol prn if SBP>180s, Hyperlipidemia - patient states she has not taken any medication for this in several years due to side effects, with elevated numbers will consider low-dose statin therapy again at discharge. Patient status: likely 1 more here and then [place] [facility] [place] once that can be arranged. DNR/DNI diet: per s/s eval dvt ppx: HSQ q12h Margarito Parsons M.D. GI Prophylaxis: Not indicated VTE Prophylaxis: Sub-Q Heparin (Unfractionated) VTE Mechanical Devices: Intermittant Pneumatic CD Resuscitation Status: DNR/DNI:Do Not Resuscitate/Intubate Leonel Parsons MD September 01, 2016 09:19
--- NOTE | 2016-09-01 11:43 | NUR ---
Social Work: Readiness for d/c Data: Acknowledge SNF order. GEOLOGICAL TECHNICAL OFFICER met with pt regarding SNF recommendation. Pt states she spoke with her spouse yesterday and that she is now fine with SNF. Pt states [facility] choice, [facility] as second. GEOLOGICAL TECHNICAL OFFICER referred pt to both locations. MD states pt may possibly be ready for d/c today. GEOLOGICAL TECHNICAL OFFICER will continue to follow. Assessment: Pt who is independent at baseline. Plan: Pt will d/c to SNF, [facility] and [facility] referred. GEOLOGICAL TECHNICAL OFFICER will continue to follow. BRENDON Moreira
--- NOTE | 2016-09-01 16:06 | NUR ---
[facility] can accept pt BRENDON Moreira
--- NOTE | 2016-09-01 16:07 | NUR ---
Social Work: Continued d/c planning Data: Pt will d/c tomorrow to either [facility] (pt's first choice) or to [facility], [facility] accepted pt, [facility] still reviewing. STEAM TABLE ATTENDANT will continue to follow. BRENDON Moreira
--- NOTE | 2016-09-01 18:26 | NUR ---
Pain Patient reported 7-9/10 sternal pain throughout shift that was only relieved to a 4-5/10 when Percocet was given q4h. Patient refused Tylenol and stated "that it does not do anything."
--- NOTE | 2016-09-01 18:30 | NUR ---
oxygenation decreased patient from 1.5L nc to RA. SpO2 maintained in high 90s.
[2016-09-01] MEDS: LORazepam 1 mg Tablet PO PRN (21:52)
[2016-09-02] VITALS (12 sets, daily range): BP systolic 126–195; BP diastolic 70–96; PULSE 54–74; RESP 18–20; O2SAT 91–96
[2016-09-02] MEDS: oxyCODONE-Acetamin 5-325 mg Tablet PO PRN ×5 (05:25→22:33)
[2016-09-02] MEDS: Polyethylene Glycol (PEG) 17 Gm Powder PO SCH ×2 (07:59→21:22)
[2016-09-02] MEDS: Lidocaine Topical 5% Patch TOPICAL SCH (08:01)
[2016-09-02] MEDS: Heparin 5,000 Unit/mL Inj SUBQ SCH ×2 (08:02→22:33)
--- NOTE | 2016-09-02 10:23 | NUR ---
Social Work: Discharge Data: Pt is on day 4 of hospitalization. EMR reviewed. MD states pt medically ready for d/c today. GOLD WHEEL BLOCKER AND POLISHER spoke with [facility] who can accept pt. [facility] setting up cabulance transportation at 1pm. GOLD WHEEL BLOCKER AND POLISHER notified , RN, pt, and pt's spouse. No further d/c planning needs at this time. GOLD WHEEL BLOCKER AND POLISHER will continue to follow if needs arise. Assessment: Pt who is independent at baseline. Plan: Pt will d/c to [facility] today via cabulance at 1pm. GOLD WHEEL BLOCKER AND POLISHER notified , RN, pt, and pt's spouse. No further d/c planning needs at this time. GOLD WHEEL BLOCKER AND POLISHER will continue to follow if needs arise. BRENDON Moreira Addendum: 09/02/16 at 1222 by RAZA WOODARD After further discussion with and LINDSAY RN, pt will not d/c today. GOLD WHEEL BLOCKER AND POLISHER will continue to follow. [facility] and pt updated. BRENDON Moreira
[2016-09-02] MEDS ORDERED: LORA-303 PO (10:26)
[2016-09-02] MEDS ORDERED: LIDO700A6 TOPICAL (10:26)
[2016-09-02] MEDS ORDERED: LISI10TA PO (10:26)
[2016-09-02] MEDS ORDERED: TRAM-14 PO (10:26)
[2016-09-02] MEDS ORDERED: OXYC1TAB24 PO (10:26)
--- NOTE | 2016-09-02 11:41 | PCM.DC.MED ---
Discharge Summary Date of Service September 02, 2016 Dates of Hospitalization Date of Hospital Admission August 29, 2016 at 21:59 Date of Discharge: September 02, 2016 Providers: Admitting Physician: Abhilash Wolf MD Primary Care Physician: Chitra Medina Diagnosis at Time of Discharge Diagnosis at Time of Discharge Syncope Sternal fracture, nonacute t5-t6 fx, secondary to GLF ALBERT, nausea ileus HTN, uncontrolled Consultations PATIENT: CHAPO CASTILLO : 1935 MR#: [id number] ADMIT: 08/29/2016 JOB ID: [id number] DATE OF SERVICE: 08/30/2016 CHIEF COMPLAINT: This is a 80-year-old woman with a sternal fracture; this consultation is requested by Dr. Gus Balderas of the Emergency Department. HISTORY OF PRESENT ILLNESS: This is a 80-year-old woman who presented to the emergency department last night with a syncopal episode. She described a history of back pain for the previous 10 days, and she had been bent over the counter in an attempt to relieve it. Her described that she fell backward. She arrived to the hospital with hypertension and otherwise normal vital signs. She was complaining of substernal chest pain. Comprehensive imaging was performed, including chest and pelvis radiographs, chest CT, and brain CT. The chest CT showed a sternal fracture, old rib fractures, and old thoracic spinal fractures. There was no other sign of trauma. She was admitted overnight for observation and to work up the potential cause for her syncopal episode. A Surgery consult was requested due to the history of blunt trauma. PAST MEDICAL HISTORY: Hyperlipidemia, hypertension. PAST SURGICAL HISTORY: Right shoulder surgery, hysterectomy. MEDICATIONS: Reviewed and include: 1. Aspirin. 2. Ibuprofen. ALLERGIES: CODEINE. FAMILY HISTORY: Reviewed and noncontributory. SOCIAL HISTORY: She is , a local resident, and denies alcohol and tobacco use. She has never been a smoker. REVIEW OF SYSTEMS: Eleven point review of systems is positive for back pain, chest pain at the location of her sternum, shortness of breath yesterday, syncope, and is otherwise negative. PHYSICAL EXAMINATION: Temperature 36.7, heart rate 63, blood pressure 188/90, respiratory rate of 18, saturation 94% on room air. General: Awake, alert, no acute distress. Head: Normocephalic. Neck: Supple. Cardiac: Regular rate and rhythm, no murmurs, rubs, or gallops. Respiratory: Clear to auscultation bilaterally. There is soft tissue fullness and swelling just to the right of the manubrium on the upper chest wall. She is holding an ice pack over it for comfort. She is not short of breath at this time. Abdomen: Soft, nontender. Well-healed incision from previous hysterectomy. Extremities: No gross abnormalities. Neurologic: No gross deficits. Psychiatric: Normal cognition and judgment. LABORATORY DATA: Labs on admission revealed white blood cell count of 11, hematocrit of 40, platelets of 336. Comprehensive metabolic panel is within normal limits with the exception of creatinine 1.08. IMAGING: CT images of the chest are personally reviewed and reveal a mildly displaced sternal body fracture without retrosternal hematoma. She has nonacute T5 and T6 vertebral body fractures and an old left 8th rib fracture. There are small cysts within the left side of her liver, and a hiatal hernia is present. ASSESSMENT: A 80-year-old woman with a sternal fracture, otherwise stable from a traumatic standpoint. RECOMMENDATIONS: Continue current workup regarding her syncopal event. With regards to sternal fracture, I recommend adequate pain control. The patient should be encouraged to ambulate and resume normal activities when she feels able. I recommended physical therapy consultation while she is in the hospital to assist with ambulation, as well as to assist with appropriate disposition. Neela Brown MD 08/30/16 1427 Procedures XRay, CTs & MRIs Chest Xray Interpretation: IMPRESSION: No acute cardiopulmonary disease. Dictated by: Vj Putnam M.D. on 08/29/2016 at 17:49 View: Portable, 1 view Interpretation / Wet Read by: Interpret - Radiologist Xray Interpretation: IMPRESSION: No acute bony injuries of the pelvic ring. Dictated by: Vj Putnam M.D. on 08/29/2016 at 19:09 Study Performed: 1 View X-Ray Ordered: Pelvis CT head IMPRESSION: 1. No acute intracranial hemorrhage after fall. 2. Findings suspicious for acute ischemic insults involving the right occipital lobe, as well as the anterior limb of the left internal capsule. Consider noncontrast brain MRI for further evaluation. 3. Background subcortical white matter chronic small vessel ischemic change. Dictated by: Vj Putnam M.D. on 08/29/2016 at 19:19 Study: Head CT no contrast Interpretation / Wet Read by: Interpret - Radiologist CT Chest Interpretation IMPRESSION: 1. Mildly displaced sternal body fracture, without retrosternal hematoma, pulmonary contusion, or pneumothorax. 2. Nonacute T5 and T6 vertebral body anterior wedge compression fractures, as well as lateral left eighth rib fracture. 3. Moderate retrocardiac hiatal hernia. 4. Several incidental left hepatic lobe simple cysts. Dictated by: Vj Putnam M.D. on 08/29/2016 at 19:25 Study type: Chest CT no contrast Interpretation / Wet Read by: Interpret - Radiologist ECG 12 Lead ECG Interpretation: Sinus rhythm rate [address] segment changes LVH Time: 17:29 Interpreted by: ED physician Brief History Patient is a 80 year old female not on anticoagulants with a history of hypertension and hyperlipidemia who presents to the ED via EMS accompanied by her after a syncopal episode just prior to arrival. Patient had injured her low back due to heavy lifting 10 days ago and has been going to the chiropractor for this with not much improvement. Patient states she has been mostly lying in bed due to its severity. This evening when she got up from her bed she felt quite lightheaded. Patient continued to feel lightheaded even after taking some moments there, went into the kitchen and had to brace herself against the counter. Patient states she does not remember falling. Per her 's the patient was unconscious for approximately 20 seconds. She was confused and disoriented when she woke up, but returned to her normal mental status after a couple of minutes. Patient denies any tongue biting, incontinence, headaches, nausea, vision changes. Her denies seizure- like activity. EMS found the patient with a BP of 228/102 and otherwise normal vital signs. She presents complaining of substernal pleuritic chest pain and shortness of breath onset upon waking up after the fall. The patient denies nausea, diaphoresis, palpitations, melena, hematochezia, hematemesis, dysuria, or other symptoms. She has never had similar symptoms in the past. Patient characterizes her sternal pain as sharp and 9/10 on the pain scale, low back as deep and achy with pain scale of 8/10 on the pain scale. In ED vitals T 36.6, P 69, are 14, BP 202/87, oxygen saturation 97% on RA. Labs significant for WBC 11.3, creatinine 1.08, glucose 132, otherwise unremarkable. Troponin negative. ECG was no acute ischemic changes. CXR showed no acute cardiopulmonary disease, x-ray of pelvis showed no acute bony injuries of the pelvic ring. CT of head showed no signs of acute intracranial hemorrhage, findings suspicious for acute ischemic insults involving the right occipital lobe as well as the anterior limb on the left internal capsule. CT of her chest showed a mildly displaced sternal body fracture, nonacute T5 and T6 vertebral body compression fractures, and lateral left eighth rib fracture. Dr. Rangel Brown of surgery was consulted, will see the patient in a.m. Patient admitted for further treatment and management including stroke workup. Hospital Course Patient is a 80 year old female with a history of hypertension and hyperlipidemia who presents to the ED via EMS accompanied by her after a syncopal episode. Patient had a GLF and hit her head with LOC for approximately 20 seconds. Patient was found to have a sternal fracture and CT head with findings suspicious for ischemic insults, patient admitted for surgery consult and stroke workup. acute, active Syncope, present on admission. ddx: cardiac vs orthostatic, -frequent neurochecks have not shown any signs of stroke. -Tolerating general diet -Echo report reviewed - PT, OT evaluated and treated -s/p [id number], aspirin 81mg daily for primary prevention started. Sternal fracture, nonacute t5-t6 fx, secondary to GLF, present on admission. Acute. Confirmed on CT chest - Appreciate surgery's time and expertise, lrec. non-surgical management. -pain control with tramadol 100mg tid, tylenol tid ALBERT, nausea, POA, likely in the setting ileus, HTN -will control supportively for now, -zofran for n/v, tylenol for ALBERT ileus, no BM>5days, continue aggressive bowel regimen Initially there was concern for Possible stroke as CT showed "no acute intracranial hemorrhage, findings suspicious for acute ischemic insults involving the right occipital lobe, as well as the anterior limb of the left internal capsule." However, MR stroke protocol was unremarkable. pt remained non -focal on exam. HTN, uncontrolled, pt was noted to have uncontrolled BP on admission, initially allowed permissive HTN given concern for stroke, however, given severe pain, it was thought to be response from pain, normalized as pain was better controlled, keep labetalol prn if SBP>180s, will start Lisinopril on discharge today. Hyperlipidemia - patient states she has not taken any medication for this in several years due to side effects, with elevated numbers will consider low-dose statin therapy again at discharge. Patient status: [facility] today DNR/DNI David Parsons M.D. Exam Vital Signs (Last) Date Time Temp Pulse Resp B/P Pulse Ox O2 Delivery O2 Flow Rate FiO2 09/02/16 09:34 36.9 54 18 160/73 91 Room Air 09/01/16 13:02 1.50 Exam Heart is regular rate and rhythm, without murmur Lungs are clear to auscultation bilaterally Extremities have no ankle edema The sternal swelling his decreased slightly. She is still using a cooling pack nearly all the time for relief. Test 08/29/16 17:15 08/29/16 17:24 08/31/16 05:00 08/31/16 07:19 Hold Purple Top Tube Received (Received) Hold Blue Top Tube Received (Received) Hold [place] Top Tube Received (Received) Troponin T < 0.010ug/L (0.0-0.011) Sodium Level 140mEq/L (134-144) Potassium Level 4.1mEq/L (3.5-5.2) Chloride Level 101mEq/L (97-108) Carbon Dioxide Level 27mmol/L (18-29) Blood Urea Nitrogen 28mg/dL (8-27) Creatinine 0.86mg/dL (0.57-1.00) Estimat Glomerular Filtration Rate 91mL/min (>59) Glucose Level 108mg/dL (60-99) Hemoglobin A1c 5.7% (4.8-5.6) Calcium Level 9.5mg/dL (8.5-10.1) Phosphorus Level 4.1mg/dL (2.5-4.9) Magnesium Level 2.0mg/dL (1.6-2.6) Total Bilirubin 0.5mg/dL (0.0-1.2) Aspartate Amino Transf (AST/SGOT) 17U/L (0-50) Alanine Aminotransferase (ALT/SGPT) 12U/L (0-32) Alkaline Phosphatase 141U/L (25-165) Total Protein 6.1g/dL (6.4-8.4) Albumin 3.2g/dL (3.4-5.0) Triglycerides Level 110mg/dL (0-149) Cholesterol Level 205mg/dL (100-199) LDL Cholesterol, Calculated 132.000mg/dL (0-99) VLDL Cholesterol 22.000mg/dL HDL Cholesterol 51mg/dL (>39) Cholesterol/HDL Ratio 4.02 (0.0-4.4) White Blood Count 8.3th/mm3 (3.8-10.1) Red Blood Count 4.23mil/mm3 (3.90-5.20) Hemoglobin 11.9g/dL (12.0-15.6) Hematocrit 35.6% (35.0-46.0) Mean Corpuscular Volume 84.2fL (81-100) Mean Corpuscular Hemoglobin 28.1pg (27.0-35.0) Mean Corpuscular Hemoglobin Concent 33.4% (32.0-37.0) Red Cell Distribution Width 14.3% (12.3-15.4) Platelet Count 250bil/L (150-400) Neutrophils (%) (Auto) 70.2% (40-74) Lymphocytes (%) (Auto) 16.9% (14-46) Monocytes (%) (Auto) 9.3% (4-12) Eosinophils (%) (Auto) 3.0% (0-5) Basophils (%) (Auto) 0.4% (0-3) Discharge Medications Discharge Medications Lidocaine (Lidoderm) 700 Mg Adh..patch 1 PATCH TOPICAL DAILY Prescribed by: DAVID PARSONS MD Lisinopril (Lisinopril) 10 Mg Tablet 10 MG PO BID Prescribed by: DAVID PARSONS MD Tramadol (Ultram) 50 Mg Tablet 100 MG PO TID Prescribed by: DAVID PARSONS MD As needed Aspirin (Aspirin) 325 Mg Tablet 325 MG PO Q4H PRN PRN For Pain (Reported) Ibuprofen (Ibuprofen) 600 Mg Tablet 600 MG PO Q4H PRN PRN For Pain (Reported) Lorazepam (Ativan) 1 Mg Tablet 1 MG PO TID PRN PRN For Anxiety or Agitation Prescribed by: DAVID PARSONS MD oxyCODONE-Acetaminophen 5-325 mg (oxyCODONE-Acetaminophen 5-325 mg) 1 Each Tablet 1 TAB PO Q4H PRN PRN For Pain Prescribed by: MD Jaqueline STILL H Edwin MD September 02, 2016 10:27
[2016-09-02] MEDS ORDERED: SENN-133 PO (11:43)
[2016-09-02] MEDS ORDERED: POLY17PO6 PO (11:43)
[2016-09-02] MEDS ORDERED: Docusate Sodium PO (11:43)
--- NOTE | 2016-09-02 16:01 | NUR ---
Elevated Systolic BP 169/82, pulse 64. Yves alvarado hospitalist and notified of Elevated BP. patient is asymptomatic and resting comfortably after Physical therapy and percocet PRN pain control for Sternal pain/fracture. Continue to monitor for pain and vital signs.
--- NOTE | 2016-09-02 16:13 | NUR ---
New orders Amlodipine 5 mg given as ordered for elevated systolic per hospitalist orders. will follow up BP.
--- NOTE | 2016-09-02 18:15 | NUR ---
Pain Sternal PRN percocet given as ordered for pain 7-8/10 with relief 3 times this shift. patient up with physical therapy and walked across the em. patient up for all meals at bed side.
--- NOTE | 2016-09-02 18:42 | NUR ---
Follow up BP BP 145/83, pulse 55 after amlodipine given as ordered.
[2016-09-02] MEDS: LORazepam 1 mg Tablet PO PRN (23:06)
[2016-09-03] VITALS (8 sets, daily range): BP systolic 133–205; BP diastolic 80–99; PULSE 56–72; RESP 16–20; O2SAT 93–95
[2016-09-03] MEDS: oxyCODONE-Acetamin 5-325 mg Tablet PO PRN ×4 (04:13→20:20)
--- NOTE | 2016-09-03 05:06 | NUR ---
Noc/Sternal pain Pt complains of sternal pain 11/15. Denies sob, or n/v or abd discomfort. Ice packs provided and Percocet PRN administered. Pt has been Hypertensive mainly due to pain. Hourly rounding in effect and pt has been afebrile throughout the night.
--- NOTE | 2016-09-03 07:34 | PCM.PNMED ---
Subjective Date of Service September 03, 2016 Subjective Still with significant sternal pain with any movement. No other complaints. Says she was on amlodipine 2 years ago but discontinued it when she in general felt poorly. Since it was effective yesterday she is willing to proceed with resuming it.. Exam Vital Signs Vital Sign - Last Date Time Temp Pulse Resp B/P Pulse Ox O2 Delivery O2 Flow Rate FiO2 09/03/16 04:09 36.7 66 20 205/99 95 Room Air 09/01/16 13:02 1.50 Intake and Output 09/02/16 09/02/16 09/03/16 Cumulative From/Thru 15:00 23:00 07:00 08/29/16 23:50 - 09/03/16 05:18 Intake Total 72 ml 518 ml 4183 ml Output Total 550 ml 3775 ml Balance 72 ml -32 ml 408 ml Intake Oral 518 ml 4111 ml IV Total 72 ml 0 ml 72 ml Output Urine Total 550 ml 3575 ml Emesis 200 ml # Voids 2 # Bowel Movements 0 0 Exam General: Alert and oriented, no acute distress, has ice pack on chest Heart: Regular Lungs: Clear Abdomen: Soft, non-tender Extremities: No pedal edema Lab and Diagnostics Result Diagram: 08/31/16 0719 08/31/16 0500 X-Rays, CTs and MRIs Chest Xray Interpretation: IMPRESSION: No acute cardiopulmonary disease. Dictated by: Vj Putnam M.D. on 08/29/2016 at 17:49 View: Portable, 1 view Interpretation / Wet Read by: Interpret - Radiologist Xray Interpretation: IMPRESSION: No acute bony injuries of the pelvic ring. Dictated by: Vj Putnam M.D. on 08/29/2016 at 19:09 Study Performed: 1 View X-Ray Ordered: Pelvis CT head IMPRESSION: 1. No acute intracranial hemorrhage after fall. 2. Findings suspicious for acute ischemic insults involving the right occipital lobe, as well as the anterior limb of the left internal capsule. Consider noncontrast brain MRI for further evaluation. 3. Background subcortical white matter chronic small vessel ischemic change. Dictated by: Vj Putnam M.D. on 08/29/2016 at 19:19 Study: Head CT no contrast Interpretation / Wet Read by: Interpret - Radiologist CT Chest Interpretation IMPRESSION: 1. Mildly displaced sternal body fracture, without retrosternal hematoma, pulmonary contusion, or pneumothorax. 2. Nonacute T5 and T6 vertebral body anterior wedge compression fractures, as well as lateral left eighth rib fracture. 3. Moderate retrocardiac hiatal hernia. 4. Several incidental left hepatic lobe simple cysts. Dictated by: Vj Putnam M.D. on 08/29/2016 at 19:25 Study type: Chest CT no contrast Interpretation / Wet Read by: Interpret - Radiologist 12-lead ECG ECG Interpretation: Sinus rhythm rate [address] segment changes LVH Time: 17:29 Interpreted by: ED physician Assessment & Plan Patient is a 80 year old female with a history of hypertension and hyperlipidemia who presents to the ED via EMS accompanied by her after a syncopal episode. Patient had a GLF and hit her head with LOC for approximately 20 seconds. Patient was found to have a sternal fracture and CT head with findings suspicious for ischemic insults (but MRI later unremarkable) , patient admitted for surgery consult and stroke workup. Remains hospitalized due to significant hypertension and difficulty with pain control. acute, active Syncope, present on admission. ddx: cardiac vs orthostatic, Initially there was concern for Possible stroke as CT showed "no acute intracranial hemorrhage, findings suspicious for acute ischemic insults involving the right occipital lobe, as well as the anterior limb of the left internal capsule." However, MR stroke protocol was unremarkable. pt remained non -focal on exam. -frequent neurochecks have not shown any signs of stroke. -Tolerating general diet -Echo report reviewed - PT, OT evaluated and treated -s/p [id number], aspirin 81mg daily for primary prevention started. Sternal fracture, nonacute t5-t6 fx, secondary to GLF, present on admission. Acute. Confirmed on CT chest - Appreciate surgery's time and expertise, lrec. non-surgical management. -pain control: continue scheduled tramadol 100mg tid, change tylenol tid to prn to allow higher dose of prn percocet (increase from 1 q 4 prn to 1-2 tabs) HTN, uncontrolled, does have a history of being treated for hypertension but she discontinued her amlodipine 2 years ago due to malaise. -pt was noted to have uncontrolled BP on admission, initially allowed permissive HTN given concern for stroke, -later, given severe pain, it was thought to be response from pain, plan labetalol prn if SBP>180s, -was planned to start Lisinopril on discharge yesterday but discharge canceled so did start lisinopril, then received dose of amlodipine which was effective ( but blood pressure back to 205/99 this morning with a heart rate 66) and today starts on a daily dose ALBERT, nausea, POA, now resolved, felt likely in the setting ileus, HTN -was treated wtih zofran for n/v, tylenol for ALBERT ileus/constipation, no BM>5days, continue aggressive bowel regimen, is on miralax and KRISTEN bid Hyperlipidemia - patient states she has not taken any medication for this in several years due to side effects, with elevated numbers will consider low-dose statin therapy again at discharge. Patient status: [facility] - hopefully tomorrow if BP and pain better controlled DNR/DNI Pain Evaluation: Pain not Controlled GI Prophylaxis: Not indicated VTE Prophylaxis: Sub-Q Heparin (Unfractionated) VTE Mechanical Devices: Intermittant Pneumatic CD Resuscitation Status: DNR/DNI:Do Not Resuscitate/Intubate Yi Salazar MD September 03, 2016 07:34
[2016-09-03] MEDS: Lidocaine Topical 5% Patch TOPICAL SCH (08:31)
[2016-09-03] MEDS: Polyethylene Glycol (PEG) 17 Gm Powder PO SCH ×2 (08:32→20:19)
[2016-09-03] MEDS: Heparin 5,000 Unit/mL Inj SUBQ SCH ×2 (08:33→20:22)
[2016-09-03] MEDS: Ondansetron 2 mg/mL 2 mL Inj IVPUSH PRN (14:05)
--- NOTE | 2016-09-03 14:09 | NUR ---
purse son took mother's purse home. This RN witnesses the pt ok that her son take her purse home.
--- NOTE | 2016-09-03 14:13 | NUR ---
nauseated pt states that she feels like she is going to "throw up". This RN gave 4mg Zofran, monitoring. pt is on the commode.
--- NOTE | 2016-09-03 14:21 | NUR ---
HR drop per telephone surveyor. HR drops to the 40's while attempting to have a BM.
[2016-09-04 01:21] VITALS: BP 129/79; PULSE 56; RESP 16; O2SAT 94
--- NOTE | 2016-09-04 04:55 | NUR ---
pain/activity 2 tabs of percocet given for sternal fx pain with good relief. able to sleep most of the night. BP down to 129/79. 1PA to the bathroom; pt tolerated well.
[2016-09-04 05:17] VITALS: BP 156/83; PULSE 61; RESP 16; O2SAT 92
[2016-09-04] MEDS: oxyCODONE-Acetamin 5-325 mg Tablet PO PRN ×2 (06:39→13:42)
[2016-09-04] MEDS ORDERED: AMLO5TAB2 PO (07:57)
[2016-09-04] MEDS ORDERED: ASPI81TA3 PO (07:57)
[2016-09-04] MEDS ORDERED: OXYC1TAB24 PO (07:57)
--- NOTE | 2016-09-04 08:02 | PCM.DC.MED ---
Discharge Summary Date of Service September 04, 2016 Dates of Hospitalization Date of Hospital Admission August 29, 2016 at 21:59 Date of Discharge: September 04, 2016 Providers: Admitting Physician: Abhilash Wolf MD Primary Care Physician: Chitra Medina Attending Physician: Abhilash Wolf MD Diagnosis at Time of Discharge Diagnosis at Time of Discharge Syncope Sternal fracture, nonacute t5-t6 fx, secondary to GLF ALBERT, nausea ileus HTN, uncontrolled Consultations PATIENT: CHAPO CASTILLO : 1935 MR#: [id number] ADMIT: 08/29/2016 JOB ID: [id number] DATE OF SERVICE: 08/30/2016 CHIEF COMPLAINT: This is a 80-year-old woman with a sternal fracture; this consultation is requested by Dr. Gus Balderas of the Emergency Department. HISTORY OF PRESENT ILLNESS: This is a 80-year-old woman who presented to the emergency department last night with a syncopal episode. She described a history of back pain for the previous 10 days, and she had been bent over the counter in an attempt to relieve it. Her described that she fell backward. She arrived to the hospital with hypertension and otherwise normal vital signs. She was complaining of substernal chest pain. Comprehensive imaging was performed, including chest and pelvis radiographs, chest CT, and brain CT. The chest CT showed a sternal fracture, old rib fractures, and old thoracic spinal fractures. There was no other sign of trauma. She was admitted overnight for observation and to work up the potential cause for her syncopal episode. A Surgery consult was requested due to the history of blunt trauma. PAST MEDICAL HISTORY: Hyperlipidemia, hypertension. PAST SURGICAL HISTORY: Right shoulder surgery, hysterectomy. MEDICATIONS: Reviewed and include: 1. Aspirin. 2. Ibuprofen. ALLERGIES: CODEINE. FAMILY HISTORY: Reviewed and noncontributory. SOCIAL HISTORY: She is , a local resident, and denies alcohol and tobacco use. She has never been a smoker. REVIEW OF SYSTEMS: Eleven point review of systems is positive for back pain, chest pain at the location of her sternum, shortness of breath yesterday, syncope, and is otherwise negative. PHYSICAL EXAMINATION: Temperature 36.7, heart rate 63, blood pressure 188/90, respiratory rate of 18, saturation 94% on room air. General: Awake, alert, no acute distress. Head: Normocephalic. Neck: Supple. Cardiac: Regular rate and rhythm, no murmurs, rubs, or gallops. Respiratory: Clear to auscultation bilaterally. There is soft tissue fullness and swelling just to the right of the manubrium on the upper chest wall. She is holding an ice pack over it for comfort. She is not short of breath at this time. Abdomen: Soft, nontender. Well-healed incision from previous hysterectomy. Extremities: No gross abnormalities. Neurologic: No gross deficits. Psychiatric: Normal cognition and judgment. LABORATORY DATA: Labs on admission revealed white blood cell count of 11, hematocrit of 40, platelets of 336. Comprehensive metabolic panel is within normal limits with the exception of creatinine 1.08. IMAGING: CT images of the chest are personally reviewed and reveal a mildly displaced sternal body fracture without retrosternal hematoma. She has nonacute T5 and T6 vertebral body fractures and an old left 8th rib fracture. There are small cysts within the left side of her liver, and a hiatal hernia is present. ASSESSMENT: A 80-year-old woman with a sternal fracture, otherwise stable from a traumatic standpoint. RECOMMENDATIONS: Continue current workup regarding her syncopal event. With regards to sternal fracture, I recommend adequate pain control. The patient should be encouraged to ambulate and resume normal activities when she feels able. I recommended physical therapy consultation while she is in the hospital to assist with ambulation, as well as to assist with appropriate disposition. Neela Brown MD 08/30/16 1427 Procedures XRay, CTs & MRIs Chest Xray Interpretation: IMPRESSION: No acute cardiopulmonary disease. Dictated by: Vj Putnam M.D. on 08/29/2016 at 17:49 View: Portable, 1 view Interpretation / Wet Read by: Interpret - Radiologist Xray Interpretation: IMPRESSION: No acute bony injuries of the pelvic ring. Dictated by: Vj Putnam M.D. on 08/29/2016 at 19:09 Study Performed: 1 View X-Ray Ordered: Pelvis CT head IMPRESSION: 1. No acute intracranial hemorrhage after fall. 2. Findings suspicious for acute ischemic insults involving the right occipital lobe, as well as the anterior limb of the left internal capsule. Consider noncontrast brain MRI for further evaluation. 3. Background subcortical white matter chronic small vessel ischemic change. Dictated by: Vj Putnam M.D. on 08/29/2016 at 19:19 Study: Head CT no contrast Interpretation / Wet Read by: Interpret - Radiologist CT Chest Interpretation IMPRESSION: 1. Mildly displaced sternal body fracture, without retrosternal hematoma, pulmonary contusion, or pneumothorax. 2. Nonacute T5 and T6 vertebral body anterior wedge compression fractures, as well as lateral left eighth rib fracture. 3. Moderate retrocardiac hiatal hernia. 4. Several incidental left hepatic lobe simple cysts. Dictated by: Vj Putnam M.D. on 08/29/2016 at 19:25 Study type: Chest CT no contrast Interpretation / Wet Read by: Interpret - Radiologist ECG 12 Lead ECG Interpretation: Sinus rhythm rate [address] segment changes LVH Time: 17:29 Interpreted by: ED physician Brief History Patient is a 80 year old female not on anticoagulants with a history of hypertension and hyperlipidemia who presents to the ED via EMS accompanied by her after a syncopal episode just prior to arrival. Patient had injured her low back due to heavy lifting 10 days ago and has been going to the chiropractor for this with not much improvement. Patient states she has been mostly lying in bed due to its severity. This evening when she got up from her bed she felt quite lightheaded. Patient continued to feel lightheaded even after taking some moments there, went into the kitchen and had to brace herself against the counter. Patient states she does not remember falling. Per her 's the patient was unconscious for approximately 20 seconds. She was confused and disoriented when she woke up, but returned to her normal mental status after a couple of minutes. Patient denies any tongue biting, incontinence, headaches, nausea, vision changes. Her denies seizure- like activity. EMS found the patient with a BP of 228/102 and otherwise normal vital signs. She presents complaining of substernal pleuritic chest pain and shortness of breath onset upon waking up after the fall. The patient denies nausea, diaphoresis, palpitations, melena, hematochezia, hematemesis, dysuria, or other symptoms. She has never had similar symptoms in the past. Patient characterizes her sternal pain as sharp and 9/10 on the pain scale, low back as deep and achy with pain scale of 8/10 on the pain scale. In ED vitals T 36.6, P 69, are 14, BP 202/87, oxygen saturation 97% on RA. Labs significant for WBC 11.3, creatinine 1.08, glucose 132, otherwise unremarkable. Troponin negative. ECG was no acute ischemic changes. CXR showed no acute cardiopulmonary disease, x-ray of pelvis showed no acute bony injuries of the pelvic ring. CT of head showed no signs of acute intracranial hemorrhage, findings suspicious for acute ischemic insults involving the right occipital lobe as well as the anterior limb on the left internal capsule. CT of her chest showed a mildly displaced sternal body fracture, nonacute T5 and T6 vertebral body compression fractures, and lateral left eighth rib fracture. Dr. Rangel Brown of surgery was consulted, will see the patient in a.m. Patient admitted for further treatment and management including stroke workup. Hospital Course Syncope, present on admission. ddx: cardiac vs orthostatic, Initially there was concern for Possible stroke as CT showed "no acute intracranial hemorrhage, findings suspicious for acute ischemic insults involving the right occipital lobe, as well as the anterior limb of the left internal capsule." However, MR stroke protocol was unremarkable. pt remained non -focal on exam. -frequent neurochecks have not shown any signs of stroke. -Tolerating general diet -Echo report reviewed - PT, OT evaluated and treated -s/p [id number], aspirin 81mg daily for primary prevention started. Sternal fracture, nonacute t5-t6 fx, secondary to GLF, present on admission. Acute. Confirmed on CT chest - Appreciate surgery's time and expertise, lrec. non-surgical management. -pain control: continue scheduled tramadol 100mg tid, changed tylenol tid to prn to allow higher dose of prn percocet (increase from 1 q 4 prn to 1-2 tabs), at discharge states better pain control with 2 tabs and appears to tolerate HTN, uncontrolled, does have a history of being treated for hypertension but she discontinued her amlodipine 2 years ago due to malaise. -pt was noted to have uncontrolled BP on admission, initially allowed permissive HTN given concern for stroke, -later, given severe pain, it was thought to be response from pain, plan labetalol prn if SBP>180s, -was planned to start Lisinopril on discharge September 02 but discharge canceled so did start lisinopril - then received dose of amlodipine September 02 poly for elevated BP that which was effective (but blood pressure back to 205/99 morning of September 03with a heart rate 66) and September 03 started on a daily dose - BP now improved with systolic in 150's ALBERT, nausea, POA, now resolved, felt likely in the setting ileus, HTN -was treated wtih zofran for n/v, tylenol for ALBERT ileus/constipation, no BM>5days, aggressive bowel regimen, is on miralax and KRISTEN bid, says had two BM's during 24 hr prior to discharge Hyperlipidemia - patient states she has not taken any medication for this in several years due to side effects, with elevated numbers will consider low-dose statin therapy again at discharge. Patient status: [facility] now that BP and pain better controlled DNR/DNI Exam Vital Signs (Last) Date Time Temp Pulse Resp B/P Pulse Ox O2 Delivery O2 Flow Rate FiO2 09/04/16 05: 37.0 61 16 156/83 92 Room Air 09/01/16 13:02 1.50 Exam General: Alert and oriented, no acute distress, sitting up in chair for breakfast Heart: Regular Lungs: Clear Abdomen: Soft, non-tender Extremities: No pedal edema Test 08/29/16 17:15 08/29/16 17:24 08/31/16 05:00 08/31/16 07:19 Hold Purple Top Tube Received (Received) Hold Blue Top Tube Received (Received) Hold [place] Top Tube Received (Received) Troponin T < 0.010ug/L (0.0-0.011) Sodium Level 140mEq/L (134-144) Potassium Level 4.1mEq/L (3.5-5.2) Chloride Level 101mEq/L (97-108) Carbon Dioxide Level 27mmol/L (18-29) Blood Urea Nitrogen 28mg/dL (8-27) Creatinine 0.86mg/dL (0.57-1.00) Estimat Glomerular Filtration Rate 91mL/min (>59) Glucose Level 108mg/dL (60-99) Hemoglobin A1c 5.7% (4.8-5.6) Calcium Level 9.5mg/dL (8.5-10.1) Phosphorus Level 4.1mg/dL (2.5-4.9) Magnesium Level 2.0mg/dL (1.6-2.6) Total Bilirubin 0.5mg/dL (0.0-1.2) Aspartate Amino Transf (AST/SGOT) 17U/L (0-50) Alanine Aminotransferase (ALT/SGPT) 12U/L (0-32) Alkaline Phosphatase 141U/L (25-165) Total Protein 6.1g/dL (6.4-8.4) Albumin 3.2g/dL (3.4-5.0) Triglycerides Level 110mg/dL (0-149) Cholesterol Level 205mg/dL (100-199) LDL Cholesterol, Calculated 132.000mg/dL (0-99) VLDL Cholesterol 22.000mg/dL HDL Cholesterol 51mg/dL (>39) Cholesterol/HDL Ratio 4.02 (0.0-4.4) White Blood Count 8.3th/mm3 (3.8-10.1) Red Blood Count 4.23mil/mm3 (3.90-5.20) Hemoglobin 11.9g/dL (12.0-15.6) Hematocrit 35.6% (35.0-46.0) Mean Corpuscular Volume 84.2fL (81-100) Mean Corpuscular Hemoglobin 28.1pg (27.0-35.0) Mean Corpuscular Hemoglobin Concent 33.4% (32.0-37.0) Red Cell Distribution Width 14.3% (12.3-15.4) Platelet Count 250bil/L (150-400) Neutrophils (%) (Auto) 70.2% (40-74) Lymphocytes (%) (Auto) 16.9% (14-46) Monocytes (%) (Auto) 9.3% (4-12) Eosinophils (%) (Auto) 3.0% (0-5) Basophils (%) (Auto) 0.4% (0-3) Discharge Medications Discharge Medications ([Docusate Sodium]) 250 MG CAPSULE 250 MG PO BID Prescribed by: DAVID MARCOS MD Amlodipine (Amlodipine) 5 Mg Tablet 5 MG PO DAILY Prescribed by: ARMEN LONG MD Aspirin Chew (Aspirin Chew) 81 Mg Chew 162 MG PO DAILY Prescribed by: ARMEN LONG MD Lidocaine (Lidoderm) 700 Mg Adh..patch 1 PATCH TOPICAL DAILY Prescribed by: DAVID MARCOS MD Lisinopril (Lisinopril) 10 Mg Tablet 10 MG PO BID Prescribed by: DAVID MARCOS MD Polyethylene Glycol 3350 (Miralax) 17 Gm Powd.pack 17 GM PO BID Prescribed by: DAVID MARCOS MD Sennosides (Senna) 8.6 Mg Tablet 17.2 MG PO BID Prescribed by: DAVID MARCOS MD Tramadol (Ultram) 50 Mg Tablet 100 MG PO TID Prescribed by: DAVID MARCOS MD As needed Aspirin (Aspirin) 325 Mg Tablet 325 MG PO Q4H PRN PRN For Pain (Reported) Ibuprofen (Ibuprofen) 600 Mg Tablet 600 MG PO Q4H PRN PRN For Pain (Reported) Lorazepam (Ativan) 1 Mg Tablet 1 MG PO TID PRN PRN For Anxiety or Agitation Prescribed by: DAVID MARCOS MD oxyCODONE-Acetaminophen 5-325 mg (oxyCODONE-Acetaminophen 5-325 mg) 1 Each Tablet 1-2 TAB PO Q4H PRN PRN For Pain Prescribed by: MD Marie PERES Peggy E MD September 04, 2016 08:02
[2016-09-04] MEDS: Polyethylene Glycol (PEG) 17 Gm Powder PO SCH (08:30)
[2016-09-04] MEDS: Lidocaine Topical 5% Patch TOPICAL SCH (08:50)
[2016-09-04] MEDS: Heparin 5,000 Unit/mL Inj SUBQ SCH (08:51)
[2016-09-04 09:20] VITALS: PULSE 57
[2016-09-04 11:02] VITALS: BP 133/82; PULSE 56; RESP 18; O2SAT 93
--- NOTE | 2016-09-04 12:45 | PCM.DIMED ---
Discharge Instructions Date of Service September 04, 2016 Dates of Hospitalization August 29, 2016 at 21:59 Discharge Diagnosis Discharge Diagnosis Syncope Sternal fracture, nonacute t5-t6 fx, secondary to GLF ALBERT, nausea ileus HTN, uncontrolled Diet Discharge Diet: No restrictions Activity Discharge Activity: No restrictions Patient Instructions Follow-up with PCP in: 2 weeks Yi Salazar MD September 04, 2016 12:45
--- NOTE | 2016-09-04 13:51 | NUR ---
Social Work: Discharge D: Pt is on day 6 of hospitalization. EMR reviewed. states pt medically ready for d/c today. [facility] confirmed pt has been accepted at [facility] with Dr. Montes to follow. SW confirmed that [facility] will transport pt via [facility] today at 1500. SW notified MD, RN, pt, and family. Transport packet completed and left at nurses station for pick-up. [employer] will continue to follow if needs arise. A: Pt for whom a SNF has been deemed medically necessary. P: Pt will transport to [facility] via [facility] today at 1500. SW notified MD, RN, pt, and family. Transport packet completed and left at nurses station for pick-up. [employer] will continue to follow if needs arise. BRENDON López
--- NOTE | 2016-09-04 14:14 | NUR ---
Faxed orders to [facility] and placed copy in chart. Patient is being transported by [facility] at 1500 per [facility] . RN has been updated as well.
[2016-09-04 14:25] VITALS: BP 178/81; PULSE 67; RESP 16; O2SAT 92
--- NOTE | 2016-09-04 14:36 | NUR ---
Elevated Systolic Called Hospitalist Yi and notified BP 178/81 and Labetelol IV, per hospitalist," do not give her anything , it is one time elevated." patient is asymptomatic.
--- NOTE | 2016-09-04 15:46 | NUR ---
Transfer to [facility] [place] Report given to admission nurse Arlette. Patient left unit approx [id number] via wheel chair with transport personnel. Scheduled Tramadol and PRN percocet given prior to discharge for sternal pain.
== END 2016-09-04 15:32 | DRG 184 ==
LOC: EDUNIT# 17:01 → EDBD 17:01 → SED 17:01 → OBSVTOIN 21:59 → MPC 21:59
PROVIDERS: ADMIT Hospitalist; ATTEND Hospitalist
DX: S22.22XA Fracture of body of sternum, initial encounter for closed fracture (principal); K56.7 Ileus, unspecified; I10 Essential (primary) hypertension; R40.4 Transient alteration of awareness; E78.5 Hyperlipidemia, unspecified; W18.39XA Other fall on same level, initial encounter; Y92.010 Kitchen of single-family (private) house as the place of occurrence of the external cause; R55 Syncope and collapse; Z66 Do not resuscitate